=== PATIENT | female | born 1945 | race Caucasian/White ===

== ENCOUNTER 2016-07-21 10:13 | Outpatient (CLI) | payer MEDICARE ==
--- NOTE | 2016-07-24 09:47 | Mammography Report ---
DIGITAL BILATERAL SCREENING MAMMOGRAM: 07/21/2016 CLINICAL HISTORY: A 71-year-old female in for routine screening mammogram. Patient has no family hi story of breast cancer. Patient had bilateral reduction mammoplasties in 2000. COMPARISON: 03/12/2012, 12/06/2010, 08/12/2012. TECHNIQUE: Craniocaudad and oblique lateral views of each breast were obtained with Hologic full-fie ld digital mammography. Also, exaggerated craniocaudad views of the breasts were obtained. FINDINGS: Breasts are almost entirely composed of fat. Benign calcifications are seen in the outer half of the left breast. This most likely is the result of benign fat necrosis. These have been pre sent on multiple old exams dated as far back as 03/12/2012. There is a small cluster of calcificatio ns developing in a circular pattern in the 12 o'clock position of the left breast 3 cm immediately nagel perior to the subareolar region. This cluster of calcification most likely represents benign fat nec rosis. It should be followed with annual mammography. An area of scarring is once again noted in the 9 o'clock position of the posterior aspect of the righ t breast. IMPRESSION: BREASTS APPEAR RADIOGRAPHICALLY BENIGN. THERE IS A SMALL CLUSTER OF CALCIFICATIONS DEVE LOPING IN THE 12 O'CLOCK POSITION OF THE LEFT BREAST IMMEDIATELY SUPERIOR TO THE LEFT SUBAREOLAR SHONDA ON. THIS FINDING MOST LIKELY IS A RESULT OF BENIGN FAT NECROSIS. RECOMMEND IT BE FOLLOWED WITH [facility]. BI-RADS 2. Benign findings. RECOMMENDATIONS: Annual bilateral screening mammography. STANDARD QUALIFYING STATEMENTS 1. This examination was reviewed with the aid of Computer-Aided Detection (CAD). 2. A negative or benign imaging report should not delay biopsy if clinically suspicious findings are present. Consider surgical consultation if warranted. More than 5% of cancers are not identified by umesh mondragon. 3. Dense breasts may obscure an underlying neoplasm. JOB #: [id number] EXT JOB #:[id number]
== END 2016-07-21 10:14 | disposition home or self-care (01) ==
LOC: DI.S 10:13
PROVIDERS: ATTEND Internal Medicine
DX: Z12.31 Encounter for screening mammogram for malignant neoplasm of breast (principal)
CPT/HCPCS: 77067

== ENCOUNTER 2017-03-27 09:34 | Outpatient (CLI) | payer MEDICARE ==
[2017-03-27 18:19] LABS: T4 (THYROXINE) 8.64 ug/dL (6.09-12.23)
[2017-03-27 18:23] LABS: THYROID STIMULATING HORMONE 2.57 uIU/mL (0.34-5.60)
== END 2017-03-27 09:35 | disposition home or self-care (01) ==
LOC: LAB.F 09:34
PROVIDERS: ATTEND Internal Medicine
DX: E03.9 Hypothyroidism, unspecified (principal)
CPT/HCPCS: 36415; 84436; 84443; 84481

== ENCOUNTER 2017-10-22 10:58 | Day surgery (SDC) | payer MEDICARE ==
[2017-10-22] MEDS ORDERED: LACTATED RINGERS 1,000 ML IV ONE (11:36)
[2017-10-22] MEDS ORDERED: MIDAZOLAM 2 MG/2 ML VIAL IVP ONE (13:05)
[2017-10-22] MEDS ORDERED: fentaNYL 100 MCG/2 ML VIAL IVP ONE (13:05)
[2017-10-22 14:03] VITALS: BP 130/73
== END 2017-10-22 10:59 | disposition home or self-care (01) ==
LOC: SDS 10:58
PROVIDERS: ATTEND Surgery
PROC: 0DJD8ZZ Inspection of Lower Intestinal Tract, Via Natural or Artificial Opening Endoscopic (ICD-10-PCS; principal; 2017-10-22 12:00)
DX: Z12.11 Encounter for screening for malignant neoplasm of colon (principal); K64.8 Other hemorrhoids; E03.9 Hypothyroidism, unspecified; Z87.891 Personal history of nicotine dependence
CPT/HCPCS: G0121; J7120

== ENCOUNTER 2018-03-20 12:29 | Outpatient (CLI) | payer MEDICARE ==
--- NOTE | 2018-03-20 13:55 | DEXA Report ---
Reason: UNSPECIFIED OSTEOARTHRITIS, UNSPECIFIED SITE Procedure Date: 03/20/2018 Accession Number: [id number] / [id number] Procedure: DEX - Dexa Spine and/or Hip CPT Code: FULL RESULT: EXAM: Dexa Spine and/or Hip DATE: 03/20/2018 1:31 PM CLINICAL HISTORY: Ovarian failure. Hormone replacement therapy. Arthritis. TECHNIQUE: Dual energy x-ray absorptiometry (DXA) was performed on a AlphaSights System. Regions measured are the AP Spine, femoral neck, and if needed forearm. COMPARISON: None. In accordance with the International Society for Clinical Densitometry (ISCD) guidelines, data from previous exams may be reanalyzed using current recommendations and techniques. This is done to allow a more accurate basis for comparison with the current study. FINDINGS: The data for the lumbar spine is as follows: BMD (g/cm/cm) T-SCORE Z-SCORE REGION L1 1.022 -0.9 1.2 L2 1.092 -0.9 1.2 L3 1.235 0.3 2.4 L4 1.254 0.4 2.5 TOTAL 1.151 -0.2 1.8 NOTE: All evaluable vertebrae are used for classification The data for the hip is as follows: BMD (g/cm/cm) T-SCORE Z-SCORE REGION Neck 0.746 -2.1 0.0 TOTAL 0.746 -2.1 -0.1 NOTE: The femoral neck or total proximal femur, whichever is lowest, is used for classification. IMPRESSION: THE WHO CLASSIFICATION BASED ON THE INTERNATIONAL REFERENCE STANDARD IS OSTEOPENIA. THE FRACTURE RISK IS INCREASED. RECOMMENDATION: Patients with diagnosis of osteoporosis or osteopenia should have regular bone mineral density assessment. For those eligible for Medicare, routine testing is allowed once every 2 years. Testing frequency can be increased for patients who have rapidly progressing disease or for those who are receiving medical therapy to restore bone mass. COMMENT: World Health Organization (WHO) definitions for osteoporosis and osteopenia: NORMAL BMD: T-score at -1.0 or higher, fracture risk is low OSTEOPENIA BMD: T-score between -1.0 and -2.5, fracture risk is increased. OSTEOPOROSIS BMD: T-score at -2.5 or lower, fracture risk is high. National Osteoporosis Foundation recommends: 1. Obtain adequate dietary calcium (at least 1200 mg per day) and vitamin D (400-800 international units per day). 2. Participate, as appropriate, in regular weightbearing and muscle-strengthening exercise. 3. Avoid tobacco use and reduce alcohol and caffeine intake. 4. For more detailed information see the website at www.NOF.org.
== END 2018-03-20 12:30 | disposition home or self-care (01) ==
LOC: DI 12:29
PROVIDERS: ATTEND Internal Medicine
DX: M85.89 Other specified disorders of bone density and structure, multiple sites (principal); M19.90 Unspecified osteoarthritis, unspecified site
CPT/HCPCS: 77080

== ENCOUNTER 2019-08-05 21:00 | Emergency (ER) | payer MEDICARE ==
[2019-08-05 21:31] LABS: BASOPHILS % (AUTO) 0.3 %; EOSINOPHILS # (AUTO) 0.1 10^3/uL (0.0-0.7); EOSINOPHILS % (AUTO) 1.4 %; HGB - HEMOGLOBIN 14.5 g/dL (12.0-16.0); LYMPHOCYTES # (AUTO) 1.9 10^3/uL (1.5-3.5); LYMPHOCYTES % (AUTO) 19.4 %; MEAN CORPUSCULAR HGB CONC 33.8 g/dL (32.0-36.0); MEAN CORPUSCULAR VOLUME 88.6 fL (81.0-99.0); MEAN PLATELET VOLUME 9.5 fL (7.9-10.8); MONOCYTES # (AUTO) 0.5 10^3/uL (0.0-1.0); MONOCYTES % (AUTO) 5.4 %; NEUTROPHILS # (AUTO) 7.3 10^3/uL (1.5-6.6); NEUTROPHILS % (AUTO) 73.1 %; PLT - PLATELET COUNT 327 10^3/uL (130-450); RED BLOOD COUNT 4.84 10^6/uL (4.20-5.40); RED CELL DISTRIBUTION WIDTH 13.2 % (12.0-15.0); WHITE BLOOD COUNT 9.9 x10^3/uL (4.8-10.8)
--- NOTE | 2019-08-05 21:39 | ED Physician Documentation ---
PD HPI CHEST PAIN - Stated complaint Stated Complaint: CP - Chief complaint Chief Complaint: Cardiac - History obtained from History obtained from: Patient - History of Present Illness Timing - onset: How many hours ago (5-6) Timing - onset during: Rest, Light activity Timing - duration: Hours (5-6) Timing - details: Abrupt onset, Still present, Waxing and waning Quality: Pressure, Tightness, Aching. No: Tearing Location: Substernal Radiation: No: Neck, Back, Abdominal Improved by: No: Rest, Antacids Worsened by: No: Exertion, Inspiration, Movement, Palpation Associated symptoms: Nausea. No: Shortness of air, Feeling faint / dizzy, General Weakness Similar symptoms before: Has not had sx before (Has had substernal tightness from diagnosed esophageal spasms in the past but those typically only last 5 to 15 minutes and then improve. Have been improved with oral medications in the past. Today's pain was different and being more prolonged and different character of more pressure feeling) Recently seen: Not recently seen Review of Systems Constitutional: denies: Fever, Chills Nose: denies: Rhinorrhea / runny nose, Congestion Throat: denies: Sore throat Respiratory: denies: Cough GI: reports: Nausea. denies: Vomiting, Diarrhea Skin: denies: Rash Neurologic: denies: Generalized weakness, Near syncope Psychiatric: denies: Anxiety Endocrine: denies: Weight loss Immunocompromised: denies: Immunocompromised PD PAST MEDICAL HISTORY - Past Medical History Cardiovascular: None Respiratory: Pneumonia Endocrine/Autoimmune: HyPOthyroidism GI: GI bleed : Other HEENT: Chronic vision loss Psych: None Musculoskeletal: Osteoarthritis Derm: None - Past Surgical History General: Appendectomy, Colonoscopy Ortho: Rotator cuff repair /RECEPTION SPECIALIST: Tubal ligation, Hysterectomy, Breast reduction, Other HEENT: Cataracts, Tonsil/Adenoidectomy - Present Medications Home Medications: Ambulatory Orders Medication Instructions Recorded Confirmed Aspirin 1 DAILY 10/22/17 Levothyroxine [Synthroid] 1 BID 10/22/17 - Allergies Allergies/Adverse Reactions: Allergies Allergy/AdvReac Type Severity Reaction Status Date / Time erythromycin base Allergy Unknown Verified 08/05/19 21:06 - Social History Does the pt smoke?: No Smoking Status: Never smoker PD ED PE NORMAL - Vitals Vital signs reviewed: Yes - General General: Alert and oriented X 3, No acute distress, Well developed/nourished - HEENT HEENT: Moist mucous membranes, Pharynx benign - Neck Neck: Supple, no meningeal sign, No adenopathy - Cardiac Cardiac: RRR, No murmur - Respiratory Respiratory: Clear bilaterally, Other (no chestwall tenderness) - Abdomen Abdomen: Soft, Non tender - Back Back: No CVA TTP - Derm Derm: Normal color, Warm and dry - Extremities Extremities: Normal ROM s pain, No edema, No calf tenderness / cord - Neuro Neuro: Alert and oriented X 3, No motor deficit, Normal speech Results - Vitals Vitals: Vital Signs - 24 hr 08/05/19 08/05/19 08/05/19 21:06 21:16 22:19 Temperature 36.6 C Heart Rate 104 H 98 105 H Respiratory 16 16 12 Rate Blood Pressure 190/93 H 184/98 H 171/81 H O2 Saturation 98 100 98 08/05/19 22:22 Temperature Heart Rate 93 Respiratory 15 Rate Blood Pressure 159/91 H O2 Saturation 93 Oxygen O2 Source Room air - EKG (time done) 21:07 Rhythm: NSR [place]: Normal Intervals: Normal ME QRS: Normal Ischemia: ST elevation c/w ischemia (V2 and aVF, III. consider anteroseptal infarct but not true pattern with V1 and V3 being normal. ). No: Normal ST segments - Labs Labs: Laboratory Tests 08/05/19 08/05/19 08/05/19 21:23 21:23 21:23 WBC 9.9 RBC 4.84 Hgb 14.5 Hct 42.9 MCV 88.6 MCH 30.0 MCHC 33.8 RDW 13.2 Plt Count 327 MPV 9.5 Neut # (Auto) 7.3 H Lymph # (Auto) 1.9 [place] # (Auto) 0.5 Eos # (Auto) 0.1 Baso # (Auto) 0.0 Absolute Nucleated RBC 0.00 Nucleated RBC % 0.0 Sodium 137 Potassium 3.4 L Chloride 99 L Carbon Dioxide 27 Anion Gap 11.0 BUN 21 H Creatinine 0.6 Estimated GFR (MDRD) 97 Glucose 123 H Calcium 9.3 Total Bilirubin 0.6 AST 53 H ALT 37 Alkaline Phosphatase 89 Troponin I High Sens 2723.4 H* Total Protein 7.2 Albumin 4.6 Globulin 2.6 Albumin/Globulin Ratio 1.8 Lipase 42 - Rads (name of study) chest xray Radiology: Prelim report reviewed (normal), See rad report PD MEDICAL DECISION MAKING - ED course Complexity details: reviewed results (There is initial EKG shows ST elevation at V2 and some ST depressions in the lateral leads. However was not a full pattern of the ST elevations. I talked with the patient and we shared decision to await the initial troponin which was not long for the result.), re-evaluated patient, considered differential (Consider prolonged esophageal spasm but more concerning for acute OH. She does not have any risk factors nor findings to raise concern for PE. The character of the pain does not consistent with aortic dissection. Her chest x-ray is clear without any signs of pneumonia nor pneumothorax nor effusio), d/w patient, other (The patient did subsequently get activated as a STEMI but was delayed in time because of the nonpatterned distribution of the ST elevation in V2 only and subsequent decision making process with the [facility] emergency physician and belt measurer.) ED course: The patient had a repeat EKG showing the same morphology without any change. The troponin came back extremely elevated at over 2000. Consistent with acute OH. I talked with the ER physician at [facility] who is also undecided on a true STEMI alert but accepted transfer the patient as a STEMI for now and would notify the belt measurer. I did talk with the belt measurer as well and and he had reviewed the EKG. He says they will see the patient in the ER and repeat EKG at that time and decide on whether going to the [facility] or not Departure - Departure Disposition: 02 Transfer Acute Care Hosp Clinical Impression: Chest pain Qualifiers: Chest pain type: precordial pain Qualified Code(s): R07.2 - Precordial pain Myocardial infarction Qualifiers: Myocardial infarction type: ST elevation myocardial infarction Involved coronary artery: unspecified coronary artery Qualified Code(s): I21.3 - ST elevation (STEMI) myocardial infarction of unspecified site Condition: Stable Record reviewed to determine appropriate education?: Yes Discharge Date/Time: 08/05/19 22:25
[2019-08-05 21:51] LABS: ALBUMIN 4.6 g/dL (3.2-5.5); ALBUMIN/GLOBULIN RATIO 1.8 (1.0-2.2); BILIRUBIN,TOTAL 0.6 mg/dL (0.2-1.0); CALCIUM 9.3 mg/dL (8.5-10.3); CREATININE 0.6 mg/dL (0.4-1.0); TOTAL PROTEIN 7.2 g/dL (6.7-8.2)
[2019-08-05] MEDS ORDERED: LIDOCAINE VISCOUS 2% 15 ML UDC MM STA (21:53)
[2019-08-05] MEDS ORDERED: NITROGLYCERIN SL 0.4 MG TABLET SL STA (21:53)
[2019-08-05] MEDS ORDERED: MAG HYDROX/AL HYDROX/SIMETH 30 ML UDC PO STA (21:53)
[2019-08-05] MEDS ORDERED: diazePAM INJ 5 MG/ML SYRINGE IVP STA (21:53)
--- NOTE | 2019-08-05 21:56 | XRAY Report ---
PROCEDURE: Chest 1 View X-Ray INDICATIONS: Chest pain TECHNIQUE: One view of the chest was acquired. COMPARISON: None. FINDINGS: Surgical changes and devices: None. Lungs and pleura: No pleural effusions or pneumothorax. Question of small opacity in the right lower lung field. Lung volumes are prominent. Mediastinum: Mediastinal contours appear normal. Heart size is normal. Bones and chest wall: No suspicious bony lesions. Overlying soft tissues appear unremarkable. IMPRESSION: Questionable small opacity in the right lower lung field versus is calcification at the costochondral junction. Reviewed by: William Herrera MD on 08/05/2019 9:54 PM PDT Approved by: William Herrera MD on 08/05/2019 9:54 PM PDT Station ID: [id number]
[2019-08-05] MEDS ORDERED: HEPARIN 25000UNITS/500ML (D5W) 25,000 UNIT/500 ML BAG IV STA (22:06)
[2019-08-05] MEDS ORDERED: CLOPIDOGREL 300 MG TABLET PO STA (22:06)
[2019-08-05] MEDS ORDERED: ASPIRIN CHEW 81 MG TABLET PO STA (22:06)
[2019-08-05] MEDS ORDERED: HEPARIN 5,000 UNIT/ML VIAL IVP STA (22:06)
[2019-08-05] MEDS ORDERED: SODIUM CHLORIDE 0.9% 1,000 ML IV STA (22:07)
[2019-08-05] MEDS ORDERED: METOPROLOL 5 MG/5 ML VIAL IVP STA (22:07)
[2019-08-05 22:40] VITALS: BP 159/91
[2019-08-05] MEDS ORDERED: NITROGLYCERIN 50 MG/250 ML 50 MG/250 ML BOTTLE IV SCH (23:00)
== END 2019-08-05 22:25 | disposition short-term general hospital (02) ==
LOC: ED 21:00
DX: I21.3 ST elevation (STEMI) myocardial infarction of unspecified site (principal); Z79.82 Long term (current) use of aspirin
CPT/HCPCS: 36415; 71045; 80053; 83690; 84484; 85025; 93005; 96374; 96375; 99284; 99285; A9270

== ENCOUNTER 2019-08-05 22:32 | Outpatient (CLI) | payer MEDICARE | END 2019-08-05 22:33 | disposition short-term general hospital (02) | LOC: EMS 22:32 | PROVIDERS: ATTEND Surgery | DX: I21.9 Acute myocardial infarction, unspecified (principal) | CPT/HCPCS: A0425; A0426 ==

== ENCOUNTER 2019-12-14 03:41 | Observation (INO) | payer MEDICARE ==
[2019-12-14 04:02] LABS: BASOPHILS # (AUTO) 0.1 10^3/uL (0.0-0.1); BASOPHILS % (AUTO) 0.7 %; EOSINOPHILS # (AUTO) 0.4 10^3/uL (0.0-0.7); EOSINOPHILS % (AUTO) 4.9 %; HGB - HEMOGLOBIN 13.8 g/dL (12.0-16.0); LYMPHOCYTES # (AUTO) 2.5 10^3/uL (1.5-3.5); LYMPHOCYTES % (AUTO) 32.8 %; MEAN CORPUSCULAR HEMOGLOBIN 31.1 pg (27.0-31.0); MEAN CORPUSCULAR VOLUME 91.4 fL (81.0-99.0); MEAN PLATELET VOLUME 9.5 fL (7.9-10.8); MONOCYTES # (AUTO) 0.8 10^3/uL (0.0-1.0); NEUTROPHILS # (AUTO) 3.8 10^3/uL (1.5-6.6); NEUTROPHILS % (AUTO) 51.3 %; PLT - PLATELET COUNT 310 10^3/uL (130-450); RED BLOOD COUNT 4.44 10^6/uL (4.20-5.40); RED CELL DISTRIBUTION WIDTH 13.2 % (12.0-15.0); WHITE BLOOD COUNT 7.5 x10^3/uL (4.8-10.8)
[2019-12-14] MEDS ORDERED: ASPIRIN 325 MG TABLET PO STA (04:04)
--- NOTE | 2019-12-14 04:04 | ED Physician Documentation ---
PD HPI CHEST PAIN - Stated complaint Stated Complaint: CP - Chief complaint Chief Complaint: Cardiac - History obtained from History obtained from: Patient - Additional information Additional information: 74-year-old woman with past medical history of high blood pressure, cholesterol, [place] in July 2019 status post stent at [facility] cardiology presents with midsternal chest pain starting at 2:30 AM at rest, lasting 45 minutes constant aching nonradiating, now resolved. Not worse with deep breathing. Patient denies shortness of breath nausea vomiting diaphoresis back pain. She had been feeling normal earlier in the day. Denies fevers Review of Systems Ten Systems: 10 systems reviewed and negative Constitutional: denies: Fever, Chills Cardiac: reports: Chest pain / pressure Respiratory: denies: Dyspnea, Cough GI: denies: Abdominal Pain, Nausea, Vomiting PD PAST MEDICAL HISTORY - Past Medical History Cardiovascular: None Respiratory: Pneumonia Endocrine/Autoimmune: HyPOthyroidism GI: GI bleed : Other HEENT: Chronic vision loss Psych: None Musculoskeletal: Osteoarthritis Derm: None - Past Surgical History General: Appendectomy, Colonoscopy Ortho: Rotator cuff repair /LABORATORY SCIENTIST: Tubal ligation, Hysterectomy, Breast reduction, Other HEENT: Cataracts, Tonsil/Adenoidectomy - Present Medications Home Medications: Ambulatory Orders Medication Instructions Recorded Confirmed Aspirin 1 DAILY 10/22/17 Levothyroxine [Synthroid] 1 BID 10/22/17 - Allergies Allergies/Adverse Reactions: Allergies Allergy/AdvReac Type Severity Reaction Status Date / Time erythromycin base Allergy Unknown Verified 12/14/19 04:01 - Social History Does the pt smoke?: No Smoking Status: Never smoker PD ED PE NORMAL - Vitals Vital signs reviewed: Yes - General General: Alert and oriented X 3 - HEENT HEENT: Atraumatic, PERRL, EOMI - Neck Neck: Supple, no meningeal sign, No JVD - Cardiac Cardiac: RRR - Respiratory Respiratory: No respiratory distress, Clear bilaterally - Abdomen Abdomen: Normal bowel sounds, Non tender, Non distended - Female Female : Deferred - Rectal Rectal: Deferred - Back Back: No CVA TTP - Derm Derm: Normal color, No rash - Extremities Extremities: No deformity - Neuro Neuro: Alert and oriented X 3 - Psych Psych: Normal mood, Normal affect Results - Vitals Vitals: Vital Signs - 24 hr 12/14/19 12/14/19 12/14/19 03:47 04:45 04:53 Temperature 36.8 C Heart Rate 71 73 64 Respiratory 22 15 12 Rate Blood Pressure 171/79 H 123/40 L 134/79 H Blood Pressure 123/40 L [Left] Blood Pressure 171/79 H [Right] O2 Saturation 99 97 99 Oxygen O2 Source Room air - EKG (time done) 0349 Rhythm: NSR Compare to prior EKG: Unchanged from prior EKG Computer interpretation: Agree with computer - Labs Labs: Laboratory Tests 12/14/19 12/14/19 12/14/19 03:52 03:52 03:52 WBC 7.5 RBC 4.44 Hgb 13.8 Hct 40.6 MCV 91.4 MCH 31.1 H MCHC 34.0 RDW 13.2 Plt Count 310 MPV 9.5 Neut # (Auto) 3.8 Lymph # (Auto) 2.5 [place] # (Auto) 0.8 Eos # (Auto) 0.4 Baso # (Auto) 0.1 Absolute Nucleated RBC 0.00 Nucleated RBC % 0.0 D-Dimer Sodium 140 Potassium 3.9 Chloride 103 Carbon Dioxide 27 Anion Gap 10.0 BUN 18 Creatinine 0.6 Estimated GFR (MDRD) 97 Glucose 111 H Calcium 9.5 Total Bilirubin 0.8 AST 33 ALT 41 Alkaline Phosphatase 108 Troponin I High Sens 11.8 Total Protein 6.9 Albumin 4.3 Globulin 2.6 Albumin/Globulin Ratio 1.7 Lipase 48 12/14/19 03:52 WBC RBC Hgb Hct MCV MCH MCHC RDW Plt Count MPV Neut # (Auto) Lymph # (Auto) [place] # (Auto) Eos # (Auto) Baso # (Auto) Absolute Nucleated RBC Nucleated RBC % D-Dimer 217.4 Sodium Potassium Chloride Carbon Dioxide Anion Gap BUN Creatinine Estimated GFR (MDRD) Glucose Calcium Total Bilirubin AST ALT Alkaline Phosphatase Troponin I High Sens Total Protein Albumin Globulin Albumin/Globulin Ratio Lipase PD MEDICAL DECISION MAKING - ED course Complexity details: reviewed results, re-evaluated patient, d/w patient, d/w family ED course: 74-year-old woman with recent [place] in July presents with new onset chest pain at rest upon waking this morning. Pain self resolved and patient presented to the ED for evaluation. Work-up in the emergency department negative, however she will benefit from further Cardiologic evaluation. Discussed with hospitalist who will admit her. Patient and agreeable. Departure - Departure Disposition: 66 [facility] DC/Xfer Clinical Impression: Chest pain Condition: Stable
[2019-12-14 04:18] LABS: ALBUMIN 4.3 g/dL (3.2-5.5); ALBUMIN/GLOBULIN RATIO 1.7 (1.0-2.2); BILIRUBIN,TOTAL 0.8 mg/dL (0.2-1.0); CALCIUM 9.5 mg/dL (8.5-10.3); CREATININE 0.6 mg/dL (0.4-1.0); TOTAL PROTEIN 6.9 g/dL (6.7-8.2)
[2019-12-14] MEDS ORDERED: SODIUM CHLORIDE FLUSH 0.9% 10 ML SYRINGE IVP PRN (06:37)
--- NOTE | 2019-12-14 06:42 | HISTORY & PHYSICAL EXAMINATION ---
Chief Complaint - Chief Complaint Chief Complaint: Left-sided chest pain History of Present Illness - Admitted From Admitted From:: [facility] ED - History Obtained From Records Reviewed: Yes History obtained from: Patient - History of Present Illness HPI Comment/Other: Patient is a 74-year-old female with medical history significant for coronary artery disease. She had an MRI in August 2019 and had 2 stents placed. She presented to the ED with complaint of sudden onset of left-sided chest pain with no radiation. She described the pain as being sharp in nature and rated at a 5 out of 10 scale. By the time she left home to head out to the emergency room her pain had resolved. While the pain was going on she took her blood pressure and it was 189/95. She repeated it short while later and it was 205/105. She explains that when she had the MRI it felt like an elephant on her chest and that this pain is significantly different from that time. She denied dyspnea, nausea, vomiting, sensation of heartburn. She also denied fever chills or abdominal pain. She does not have any lower extremity edema. Her replenishment analyst is Dr. Tl Steven from [place]. In the ED work-up included an EKG and troponin which were unremarkable. As a re sult of her significant cardiac history and recent cardiac intervention she was presented for admission for further evaluation. History - Past Medical History Cardiovascular: reports: None, Hypertension, High cholesterol, Coronary artery disease Endocrine/Autoimmune: reports: HyPOthyroidism GI: reports: GI bleed : reports: Other HEENT: reports: Chronic vision loss Psych: reports: None Musculoskeletal: reports: Osteoarthritis Derm: reports: None MRSA Hx?: No - Past Surgical History General: reports: Appendectomy, Colonoscopy Ortho: reports: Rotator cuff repair /CORPORATE INTERN: reports: Tubal ligation, Hysterectomy, Breast reduction, Other Cardiovascular: reports: Coronary stent HEENT: reports: Cataracts, Tonsil/Adenoidectomy - Family & Social History Family History Comment/Other: The patient's mother had an unspecified heart disease. She in 1959 from an MVA. The patient's children and sibling healthy. Living arrangement: At home Living Situation: With spouse/s.o. Social History Notes: She smoked 1 pack of cigarettes a day from the age of 13- 19. She rarely consumes alcohol and does not use any recreational substances. - POLST Patient has POLST: No Meds/Allgy - Home Medications Home Medications: Ambulatory Orders Medication Instructions Recorded Confirmed Aspirin 1 DAILY 10/22/17 Levothyroxine [Synthroid] 1 BID 10/22/17 - Allergies Allergies/Adverse Reactions: Allergies Allergy/AdvReac Type Severity Reaction Status Date / Time erythromycin base Allergy Unknown Verified 12/14/19 04:01 telithromycin [From Ketek] Allergy Rash Verified 12/14/19 08:03 morphine AdvReac Intermediate Unknown Verified 12/14/19 08:02 Review of Systems - Constitutional Constitutional: denies: Fever, Chills - Eyes Eyes: denies: Pain - Ears, Nose & Throat Ears, Nose & Throat: denies: Ear pain - Cardiovascular Cariovascular: reports: Chest pain. denies: Irregular heart rate, Palpitations, Edema, Lightheadedness, Syncope, Exertional dyspnea, Decr. exercise tolerance - Respiratory Respiratory: denies: Cough, Sputum production, Wheezing, SOB at rest, SOB with exertion - Gastrointestinal Gastrointestinal: denies: Abdominal pain, Abdominal distention, Nausea, Vomiting, Reflux/heartburn - Genitourinary Genitourinary: denies: Dysuria, Frequency, Urgency, Hematuria - Musculoskeletal Musculoskeletal: denies: Muscle pain, Back pain, Muscle aches - Integumentary Integumentary: denies: Rash, Pruritis, Lesions - Neurological Neurological: denies: General weakness, Focal weakness, Headache, Dizziness - Psychiatric Psychiatric: denies: Depression, Anxiety - Endocrine Endocrine: denies: Polyuria, Polydypsia - Hematologic/Lymphatic Hematologic/Lymphatic: denies: Anemia, Bruising Prior Level of Functionality: She is independent of activities of daily living.She is very active and walks daily Exam - Vital Signs Vital Signs: Vital Signs x48h Temp Pulse Resp BP BP BP Pulse Ox 12/14/19 06:00 36.8 C 70 12 172/90 H 99 12/14/19 04:53 64 12 134/79 H 99 12/14/19 04:45 73 15 123/40 L 97 12/14/19 03:47 36.8 C 71 22 171/79 H 123/40 L 171/79 H 99 Conclusion/Plan - Problem List (1) Chest pain Conclusion/Plan: EKG showed sinus rhythm. Initial troponin was normal at 11.8. Will trend troponin times tomorrow. The patient had an MRI in August 2019 and is currently on the baby aspirin and Plavix. We will continue. We will do stress test on Sunday. (2) Coronary artery disease Conclusion/Plan: Recent PCI with stents placed in August 2019. Patient is on aspirin and Plavix. Will continue. We will continue patient's Toprol XL 50 mg daily. Patient is also on lisinopril 5 mg daily and rosuvastatin. (3) Hypothyroidism Conclusion/Plan: Will resume patient's Synthroid at home dose. (4) Hyperlipidemia Conclusion/Plan: Patient is on Rosuvastatin. We will use an equivalent dose of atorvastatin while in the hospital. (5) Hypertension Conclusion/Plan: Patient is on metoprolol XL 50 mg p.o. daily and lisinopril 5 mg. We will continue. We will also order a as needed like hydralazine if and when indicated. - Lab Results Fish Bones: 12/14/19 03:52 12/14/19 03:52 Core Measures - Anticipated LOS I expect patient to be DC'd or transferred within 96 hours.: Yes - DVT/VTE - Prophylaxis VTE/DVT Device ordered at admit?: Yes
--- NOTE | 2019-12-14 07:54 | XRAY Report ---
PROCEDURE: Chest 1 View X-Ray INDICATIONS: Chest pain TECHNIQUE: One view of the chest was acquired. COMPARISON: 08/05/2019 FINDINGS: Surgical changes and devices: None. Lungs and pleura: No pleural effusions or pneumothorax. Stable appearance of multiple costochondral calcifications most pronounced in the left lower lung zone. Lungs are otherwise clear. Mediastinum: Mediastinal contours appear normal. Heart size is normal. Bones and chest wall: No suspicious bony lesions. Overlying soft tissues appear unremarkable. IMPRESSION: Chest without acute cardiopulmonary abnormalities. No significant discrepancy with initial interpretation by overnight radiologist. Reviewed by: Preston Gleason MD on 12/14/2019 6:53 AM [facility] Approved by: Preston Gleason MD on 12/14/2019 6:53 AM [facility] Station ID: [id number]
[2019-12-14] MEDS: LEVOTHYROXINE 75 MCG TABLET PO SCH (09:29)
[2019-12-14] MEDS: SODIUM CHLORIDE FLUSH 0.9% 10 ML SYRINGE IVP SCH ×2 (09:29→19:28)
--- NOTE | 2019-12-14 12:21 | PHARMACY PROGRESS NOTE ---
- Best Possible Medication History Admit Date and Time: 12/14/19 0637 Processed by: Pharmacy Medication History completed: Yes Patient Interview: Pt unable to participate Patient had pill box. Meds identified. Of note, patient had both metoprolol tartrate 25 mg tablets and metoprolol succinate 25 mg tablets. Most recent prescription was for metoprolol succinate 25mg tablets with instructions to take 2 tablets daily. As the person ultimately responsible for medication therapy, providers are able to order a medication from an existing home medication list in [facility] via the "Reconcile Routine" prior to Confirmation of that medication by technical sales support manager. Such practice is discouraged except when the physician, in their clinical judgment, deems that a medical need exists for a medication without regard to previous use.
[2019-12-14] MEDS ORDERED: ENOXAPARIN 40 MG/0.4 ML SYRINGE SUBQ SCH (21:00)
[2019-12-15] MEDS: SODIUM CHLORIDE FLUSH 0.9% 10 ML SYRINGE IVP SCH ×2 (02:29→10:08)
[2019-12-15 05:21] LABS: BASOPHILS % (AUTO) 0.6 %; EOSINOPHILS # (AUTO) 0.2 10^3/uL (0.0-0.7); EOSINOPHILS % (AUTO) 4.2 %; HGB - HEMOGLOBIN 13.2 g/dL (12.0-16.0); LYMPHOCYTES # (AUTO) 1.9 10^3/uL (1.5-3.5); LYMPHOCYTES % (AUTO) 37.9 %; MEAN CORPUSCULAR HEMOGLOBIN 30.6 pg (27.0-31.0); MEAN PLATELET VOLUME 9.5 fL (7.9-10.8); MONOCYTES # (AUTO) 0.4 10^3/uL (0.0-1.0); MONOCYTES % (AUTO) 7.7 %; NEUTROPHILS # (AUTO) 2.5 10^3/uL (1.5-6.6); NEUTROPHILS % (AUTO) 49.6 %; PLT - PLATELET COUNT 284 10^3/uL (130-450); RED BLOOD COUNT 4.31 10^6/uL (4.20-5.40); RED CELL DISTRIBUTION WIDTH 13.3 % (12.0-15.0)
[2019-12-15 05:31] LABS: CALCIUM 8.6 mg/dL (8.5-10.3); CREATININE 0.6 mg/dL (0.4-1.0)
[2019-12-15] MEDS: LEVOTHYROXINE 75 MCG TABLET PO SCH (06:11)
[2019-12-15] MEDS ORDERED: lisinopriL 5 MG TABLET PO SCH (09:00)
[2019-12-15] MEDS ORDERED: ASPIRIN EC 81 MG TABLET PO SCH (09:00)
[2019-12-15] MEDS ORDERED: METOPROLOL SUCCINATE 25 MG TABLET PO SCH (09:00)
[2019-12-15] MEDS ORDERED: CLOPIDOGREL 75 MG TABLET PO SCH (09:00)
[2019-12-15] MEDS ORDERED: METOPROLOL SUCCINATE 50 MG TABLET PO SCH (10:15)
[2019-12-15] MEDS ORDERED: ACETAMINOPHEN 500 MG TABLET PO PRN (10:36)
[2019-12-15] MEDS ORDERED: LIOTHYRONINE PO SCH (16:00)
--- NOTE | 2019-12-15 17:27 | Nuclear Medicine Report ---
PROCEDURE: Rest and exercise myocardial perfusion SPECT with gated imaging and ejection fraction INDICATIONS: Chest pain RADIOPHARMACEUTICAL: 7 mCi Tc-99m Myoview IV at rest and 21 mCi Tc-99m Myoview IV at peak exercise. [id number] was performed. TECHNIQUE: Radiopharmaceutical was injected at peak stress test, and also at rest. SPECT images wer e obtained. SPECT myocardial perfusion images were displayed in short axis, horizontal long axis, an d vertical long axis views. Gated images were reviewed using AutoQUANT software. COMPARISON: None available. FINDINGS: Raw data: There is good myocardial labeling by radiotracer. No significant motion artifacts. Lung- to-heart ratio is 0.32 (normal is less than 0.38 for tetrafosmin tracer). Left ventricle function: Gated images demonstrate normal left ventricle wall thickening. No segment al wall motion abnormality. No transient ischemic dilation; TID is 1.47 (normal less than 1.3). The left ventricle resting end-diastolic volume is normal. Left ventricle stress ejection fraction is > 70%; normal values are above 45%. Myocardial perfusion: There is a large, severe, fixed perfusion defect in the anterior wall, consist ent with myocardial infarction. There is minimal reversibility in the anterior wall. IMPRESSION: 1. Abnormal myocardial perfusion images. There is a large, severe, fixed perfusion defect in the ante rior wall consistent with myocardial infarction. There is minimal reversibility in the infarcted terr itory in the anterior wall consistent with minimal jania-infarct ischemia. 2. Normal left ventricular volume and systolic function with LVEF greater than 70%. 3. There is transient ischemic dilation of the left ventricle, which is associated with multivessel c oronary artery disease. The result discussed with Dr. Wing. PQRS ATTESTATIONS: Measure 322 - Is this imaging test primarily performed on a low-risk surgery patient for preoperative evaluation within 30 days preceding their low-risk non-cardiac surgery? Low-risk surgery is defined as cardiac or myocardial infarction less than 1%, including (but not limited to) endoscopic pr ocedures, superficial procedures, cataract surgery, and excisional breast surgery: Answer: No Measure 323 - Is this imaging test performed primarily for the monitoring of an asymptomatic patient who had percutaneous coronary intervention on the visit date or within 2 years of the visit date? An swer: No Measure 324 - Is this imaging test performed primarily for the initial detection and risk assessment on an asymptomatic, low coronary heart disease patient? Low CHD risk definition = clinicians should consider the maximum number of available patient factors used to estimate risk based on [place] (A TP III criteria), typically age, gender, diabetes, smoking status, and use of blood pressure medicati on, and integrate age appropriate estimates for missing elements, such as LDL or standard blood press ure. Answer: No Reviewed by: Glenis Lima MD on 12/15/2019 5:26 PM PST Approved by: Glenis Lima MD on 12/15/2019 5:26 PM PST Station ID: [id number]
--- NOTE | 2019-12-15 17:44 | DISCHARGE SUMMARY ---
"Discharge Summary Admit Date: 12/14/19 Discharge Date: 12/15/19 Discharging Provider: Dr Raven Sutton Primary Care Provider: Dr Ary Abbasi, Dr Tl Steven ([facility], [place], [place]) Condition at Discharge: Fair Discharge Disposition: 01 Home, Self Care - HPI History of Present Illness: From the admission H&P of Dr. Melecio Hunteru: Patient is a 74-year-old white female with medical history significant for coronary artery disease. She had an NH in August 2019 and had 2 stents placed. She presented to the ED now with complaint of sudden onset of left-sided chest pain with no radiation. She described the pain as being sharp in nature and rated at a 5 out of 10 scale. By the time she left home to head out to the emergency room her pain had resolved. While the pain had been going on, she measured her blood pressure and it was 189/95. She repeated it a short while la ter and it was 205/105. She reported that when she had the NH, it had felt like an elephant was on her chest and that this pain is significantly different from that other time. She denied dyspnea, nausea, vomiting, sensation of heartburn. She also denied fever chills or abdominal pain. She does not have any lower extremity edema. Her Uncrater is Dr. Tl Steven from [facility]. In the ED work-up included an EKG and troponin which were unremarkable. As a result of her significant cardiac history and recent cardiac intervention she was presented for further evaluation. - CONSULTS | PROCEDURES Procedures: Treadmill stress test with Nuclear myocardial perfusion imaging - HOSPITAL COURSE Hospital Course: 1) Chest pain She was placed in Observation ststus on telemetry. Troponins were cycled and were negative for acute NH. She had no further episodes of chest pain while here. She had described this pain as a different symptom than her NH pain, as such the Hospitalist reached her Uncrater and discussed her case. The Uncrater did advise a stress test be done here before discharge. 2) Old NH She underwent a treadmill stress test with nuclear myocardial perfusion imaging. She had no chest pain with exercise and achieved an adequate peak heart rate, and there were no new ischemic EKG changes. The nuclear scan, however, showed a large fixed defect of the anterior wall, consistent with an old NH, and there was minimal jania-infarct ischemia reported. There was also transient ischemic dilation of the LV reported, which suggests three vessel CAD. 3) CAD The patient was discharged home with a new prescription for sl NTG, and taught how to use it. All her other medications were to remain the same. She was advised to see her Uncrater soon for hospital follow-up and to have her Uncrater review these nuclear scan findings, in light of her coronary angiogram results from August, (a report which we did not have). The patient remarked that there was still a stenosis at a bifurcation that was not stented, which may therefore be a significant lesion, based on that nuclear scan report. She was advised to do light activity only until seen by her Uncrater; and reyna joiner reported that she already has a previously scheduled appointment to see him next week. 4) Hypertension Her BP was occasionally elevated while here, because she declined to take the hospital-supplied BP meds, insisting she wanted to take her own supply while here, because in Observation status she is billed for hospital-supplied meds and she did not want a large hospital bill. 5) Hypothyroidism She wanted to take her own compounded Cytomel, however, the medication list that was reconciled by Pharmacy at admission, did not say Cytomel, and Cytomel was not reconciled until the next day, when her PCP's office was open (on Sunday) and was contacted by the hospital pharmacy department. 6) Hyperlipidemia She was on Crestor and she did not want to take the hospital's substituted Atorvastatin while here. - ALLERGIES Allergies/Adverse Reactions: Allergies Allergy/AdvReac Type Severity Reaction Status Date / Time erythromycin base Allergy Unknown Verified 12/14/19 04:01 telithromycin [From Ketek] Allergy Rash Verified 12/14/19 08:03 morphine AdvReac Intermediate Unknown Verified 12/14/19 08:02 - MEDICATIONS Home Medications: Ambulatory Orders Medication Instructions Recorded Confirmed RX: Clopidogrel [Plavix] 75 mg PO DAILY 12/14/19 12/14/19 RX: Lisinopril [Prinivil] 5 mg PO DAILY 12/14/19 12/14/19 RX: Metoprolol Succinate [Toprol 50 mg PO DAILY 12/14/19 12/14/19 Xl] Nitroglycerin [Nitrostat] 0.4 mg SL Q5MIN PRN #100 tablet 12/15/19 RX: Aspirin [Aspirin EC] 81 mg PO DAILY 12/15/19 12/15/19 RX: Liothyronine [Cytomel] 15 mcg PO Q8H 12/15/19 12/15/19 RX: Rosuvastatin Calcium [Crestor] 20 mg PO QPM 12/15/19 12/15/19 - PHYSICAL EXAM AT DISCHARGE General Appearance: positive: No acute distress, Alert Eyes Bilateral: positive: Normal inspection, EOMI ENT: positive: ENT inspection nml, No signs of dehydration Neck: positive: Nml inspection, No JVD Respiratory: positive: No respiratory distress, Breath sounds nml Cardiovascular: positive: Regular rate & rhythm Abdomen: positive: Non-tender, No distention Skin: positive: Warm, Dry Extremities: positive: Non-tender, No pedal edema Neurologic/Psychiatric: positive: Oriented x3, Motor nml - LABS Result Diagrams: 12/15/19 04:33 12/15/19 04:33 - DIAGNOSTIC IMAGING Diagnostic Imaging Results: Final report reviewed - FOLLOW UP Follow Up: See Uncrater soon in follow up (has appointment in a week). Light activity advised until Uncrater seen. - TIME SPENT Time Spent in Discharge (Minutes): 30"
--- NOTE | 2019-12-15 17:44 | Discharge Plan ---
Discharge Plan Problem Reviewed?: Yes Disposition: Home, Self Care Condition: Fair Prescriptions: Nitroglycerin [Nitrostat] 0.4 mg SL Q5MIN PRN #100 tablet PRN Reason: Angina Diet: Low Sodium Activity Restrictions: Activity as Tolerated Shower Restrictions: No Driving Restrictions: No Instruction Topics: Angina, Nitroglycerin Fast Acting Health Concerns: You were placed in Observation status to evaluate your blood tests (troponins), which showed that you did not have another heart attack. You then underwent a stress test and this showed evidence of large scar from your recent heart attack and some problems on the border zone of the scar. You are being discharged with a new prescription for sublingual nitroglycerin, to use if you should have chest pain again. Prescription was electronically sent to your [facility] pharmacy in [place]. You should see your Dip Dyer who will review the scans and determine if you need another coronary angiogram and get a stent. Until you are seen by your Dip Dyer, you should NOT be doing daily exercises. Please just carry out gentle activity. Continue all your other prehospital medications. Plan of Treatment: As above. Care Goals: Improvement in symptoms and stabilization are the goals. Assessment: The patient understands. These written instructions are being provided as reminders. Additional Instructions or Follow Up instructions: If you have new or worsening symptoms, call your PCP or Dip Dyer for advice, or come to the ER. No Smoking: If you smoke, Please STOP! Call for help. Follow-up with: Ary Abbasi MD [Primary Care Provider] -
[2019-12-15 18:17] VITALS: BP 120/76
--- NOTE | 2019-12-15 19:28 | CARDIAC PROCEDURE NOTE ---
DATE OF SERVICE: 12/15/2019 Physician: Raven Sutton MD INDICATION: Chest pain. CARDIAC RISK FACTORS: Advanced age, hypertension, hyperlipidemia, family history of early heart disease (her mother had heart disease at age 40). The patient also has a known history of coronary artery disease with an WI about 5 months ago and has coronary stenting. DESCRIPTION OF PROCEDURE: After signing informed consent, the patient underwent a Jc-protocol treadmill stress test with nuclear myocardial perfusion imaging. RESTING HEART RATE: 92. Peak heart rate: 140 (96% predicted maximum heart rate for age). RESTING BLOOD PRESSURE: 155/82. Peak blood pressure: 187/88. The patient exercised for 3 minutes and 42 seconds on a Jc-protocol treadmill stress test. She achieved a peak heart rate of 140 (96% PMHR) and 5.5 METs. The patient had no chest pain and minimal shortness of breath. She described her perceived exertion at 12/20 on the Sarika scale at peak. Oxygen saturation was 94%-98% on room air throughout the test. RESTING EKG: Normal sinus rhythm, left atrial enlargement, right atrial enlargement, QS waves in V1 and V2 consistent with old anteroseptal WI. EKG AT [facility]: No new ST-segment depressions or T-wave abnormalities develop. IMPRESSION 1. Abnormal resting EKG. 2. No ischemic changes develop at 96% predicted heart rate for age. 3. Poorly controlled heart rate and blood pressure (patient did not take any of her usual medications today). 4. Nuclear images showed: Large fixed defect in the anterior wall, consistent with old WI, with minimal jania-infarct ischemia, and there is also transient ischemic dilation of the LV (suggesting three vessel CAD). cc: Ary Abbasi MD TD: 12/15/2019 14:59 MTDD
[2019-12-16] MEDS ORDERED: ASPIRIN EC 81 MG TABLET PO SCH (09:00)
== END 2019-12-15 19:00 | disposition home or self-care (01) ==
LOC: ED 03:41 → MS2 06:37
PROVIDERS: ADMIT Internal Medicine; ATTEND Internal Medicine
DX: R07.89 Other chest pain (principal); I25.2 Old myocardial infarction; I25.10 Atherosclerotic heart disease of native coronary artery without angina pectoris; I10 Essential (primary) hypertension; E03.9 Hypothyroidism, unspecified; E78.5 Hyperlipidemia, unspecified; Z95.5 Presence of coronary angioplasty implant and graft; Z87.891 Personal history of nicotine dependence; Z20.828 Contact with and (suspected) exposure to other viral communicable diseases; Z79.899 Other long term (current) drug therapy
CPT/HCPCS: 36415; 71045; 78452; 80048; 80053; 83690; 84484; 85025; 85379; 93005; 93017; 99284; 99285; A9270; A9500; G0378; U0004

== ENCOUNTER 2021-04-01 08:22 | Outpatient (CLI) | payer MEDICARE ==
[2021-04-07 10:10] LABS: HDL LARGE 6578 nmol/L (>6729); LDL MEDIUM 331 nmol/L (<215); LDL PARTICLE NUMBER 1445 nmol/L (<1138); LDL PATTERN A Pattern (A); LDL PEAK SIZE 222.3 Angstrom (>222.9); LDL SMALL 178 nmol/L (<142)
== END 2021-04-01 08:23 | disposition home or self-care (01) ==
LOC: LAB.S 08:22
PROVIDERS: ATTEND Internal Medicine Cardiovascular Disease
DX: E78.5 Hyperlipidemia, unspecified (principal); I10 Essential (primary) hypertension; I25.10 Atherosclerotic heart disease of native coronary artery without angina pectoris; R07.89 Other chest pain
CPT/HCPCS: 36415; 80061; 81599; 83704

== ENCOUNTER 2021-08-17 08:00 | Outpatient (CLI) | payer MEDICARE ==
--- NOTE | 2021-08-17 17:14 | XRAY Report ---
PROCEDURE: Chest 2 View X-Ray INDICATIONS: ACUTE COUGH TECHNIQUE: 2 view(s) of the chest. COMPARISON: None. FINDINGS: Surgical changes and devices: None. Lungs and pleura: No pleural effusions or pneumothorax. Focal opacity noted in the medial aspect of the left lung base. Mediastinum: Mediastinal contours are normal. Heart size is normal. Bones and chest wall: No suspicious bony abnormalities. Soft tissues appear unremarkable. IMPRESSION: Basilar focal airspace opacity which could represent atelectasis or pneumonia. Reviewed by: Jacinda Pickens MD, PhD on 08/17/2021 5:12 PM PDT Approved by: Jacinda Pickens MD, PhD on 08/17/2021 5:12 PM PDT Station ID: [id number]
== END 2021-08-17 23:59 | disposition home or self-care (01) ==
LOC: DI.S 08:00
PROVIDERS: ATTEND Internal Medicine
DX: R91.8 Other nonspecific abnormal finding of lung field (principal)

== ENCOUNTER 2022-02-23 09:45 | Emergency (ER) | payer MEDICARE ==
--- NOTE | 2022-02-23 09:56 | ED Physician Documentation ---
PD HPI ABD PAIN - Stated complaint Stated Complaint: ABD PX - Chief complaint Chief Complaint: Abd Pain - History obtained from History obtained from: Patient - History of Present Illness Timing - onset: How many days ago (3) Timing - duration: Days (3) Timing - details: Gradual onset, Still present, Waxing and waning Quality: Aching, Dull, Pain Location: Epigastric (to lower substernal) Radiation: Chest. No: Upper back Improved by: Eating Worsened by: No: Eating (but has noted it feeling worse if delays eating or first thing in morning.) Associated symptoms: Nausea (and decreased appetite.). No: Fever, Vomiting, Diarrhea, Constipation, Melena Similar symptoms before: Diagnosis (she states the pain is somewhat similar to cardiac pain she had with TX several years ago, with subsequent 2 stents placed. She states there is other area of partial stenosis that was not amenable to stenting.) Recently seen: Emergency Dept (seen in another ER 3 days ago, in AM after the onset of the pain, and patient says workup focused on eval for TX with ECG/CXR/troponinx2 that were normal. Sent home with "not TX" diagnosis. Had minimal bili elevation 1.1 on labs. else normal per patient.) Review of Systems Constitutional: denies: Fever, Chills Nose: denies: Rhinorrhea / runny nose, Congestion Throat: denies: Sore throat Cardiac: denies: Palpitations, Pedal edema, Calf pain Respiratory: denies: Dyspnea, Cough GI: reports: Nausea. denies: Vomiting, Diarrhea, Bloody / black stool Musculoskeletal: denies: Extremity swelling PD PAST MEDICAL HISTORY - Past Medical History Cardiovascular: None, Hypertension, High cholesterol, Coronary artery disease Respiratory: Pneumonia Endocrine/Autoimmune: HyPOthyroidism GI: GI bleed : Other HEENT: Chronic vision loss Psych: None Musculoskeletal: Osteoarthritis Derm: None - Past Surgical History Past Surgical History: Yes General: Appendectomy, Colonoscopy Ortho: Rotator cuff repair /BRASS PICKLER: Tubal ligation, Hysterectomy, Breast reduction, Other Cardiovascular: Coronary stent HEENT: Cataracts, Tonsil/Adenoidectomy - Present Medications Home Medications: Ambulatory Orders Medication Instructions Recorded Confirmed Clopidogrel [Plavix] 75 mg PO DAILY 12/14/19 12/14/19 Metoprolol Succinate [Toprol Xl] 50 mg PO DAILY 12/14/19 12/14/19 lisinopriL [Prinivil] 5 mg PO DAILY 12/14/19 12/14/19 Aspirin [Aspirin EC] 81 mg PO DAILY 12/15/19 12/15/19 Liothyronine [Cytomel] 15 mcg PO Q8H 12/15/19 12/15/19 Nitroglycerin [Nitrostat] 0.4 mg SL Q5MIN PRN #100 tablet 12/15/19 Rosuvastatin Calcium [Crestor] 20 mg PO QPM 12/15/19 12/15/19 Famotidine [Pepcid] 20 mg PO DAILY #20 tablet 02/23/22 Lidocaine Viscous 2% [Xylocaine 5 ml PO Q4H PRN #100 ml 02/23/22 Viscous 2%] - Allergies Allergies/Adverse Reactions: Allergies Allergy/AdvReac Type Severity Reaction Status Date / Time erythromycin base Allergy Unknown Verified 02/23/22 09:55 telithromycin [From Ketek] Allergy Rash Verified 02/23/22 09:55 morphine AdvReac Intermediate Unknown Verified 02/23/22 09:55 - Social History Does the pt smoke?: No Smoking Status: Former smoker Does the pt drink ETOH?: No Does the pt have substance abuse?: No - Immunizations Immunizations are current?: Yes - POLST Patient has POLST: No PD ED PE NORMAL - Vitals Vital signs reviewed: Yes - General General: Alert and oriented X 3, Well developed/nourished Results - Vitals Vitals: Vital Signs - 24 hr 02/23/22 02/23/22 02/23/22 09:51 11:28 12:15 Temperature 36.4 C L Heart Rate 81 71 74 Respiratory 16 14 14 Rate Blood Pressure 117/20 L 126/73 129/78 O2 Saturation 99 100 100 02/23/22 13:50 Temperature Heart Rate 78 Respiratory 18 Rate Blood Pressure 122/72 O2 Saturation 100 Oxygen O2 Source Room air - EKG (time done) 10:01 Rate: Rate (enter#) (71) Rhythm: NSR Ferguson: Normal Intervals: Normal NM QRS: Normal Ischemia: Normal ST segments. No: ST elevation c/w ischemia, ST depression - Labs Labs: Laboratory Tests 02/23/22 02/23/22 02/23/22 11:19 11:19 11:19 WBC 8.3 RBC 4.68 Hgb 14.4 Hct 42.9 MCV 91.7 MCH 30.8 MCHC 33.6 RDW 12.7 Plt Count 275 MPV 9.9 Neut # (Auto) 6.1 Lymph # (Auto) 1.5 Caldwell # (Auto) 0.6 Eos # (Auto) 0.1 Baso # (Auto) 0.0 Absolute Nucleated RBC 0.00 Nucleated RBC % 0.0 Sodium 136 Potassium 4.6 Chloride 100 L Carbon Dioxide 27 Anion Gap 9.0 BUN 16 Creatinine 0.6 Estimated GFR (MDRD) 97 Glucose 94 Calcium 8.9 Magnesium 2.2 Total Bilirubin 0.7 AST 26 ALT 24 Alkaline Phosphatase 70 Troponin I High Sens 4.4 Total Protein 6.8 Albumin 3.7 Globulin 3.1 Albumin/Globulin Ratio 1.2 Lipase 57 H Urine Color Urine Clarity Urine pH Ur Specific Cookson Urine Protein Urine Glucose (UA) Urine Ketones Urine Occult Blood Urine Nitrite Urine Bilirubin Urine Urobilinogen Ur Leukocyte Esterase Urine RBC Urine WBC Ur Squamous Epith Cells Urine Bacteria Ur Microscopic Review Urine Culture Comments 02/23/22 11:33 WBC RBC Hgb Hct MCV MCH MCHC RDW Plt Count MPV Neut # (Auto) Lymph # (Auto) Caldwell # (Auto) Eos # (Auto) Baso # (Auto) Absolute Nucleated RBC Nucleated RBC % Sodium Potassium Chloride Carbon Dioxide Anion Gap BUN Creatinine Estimated GFR (MDRD) Glucose Calcium Magnesium Total Bilirubin AST ALT Alkaline Phosphatase Troponin I High Sens Total Protein Albumin Globulin Albumin/Globulin Ratio Lipase Urine Color YELLOW Urine Clarity HAZY Urine pH 6.5 Ur Specific Cookson 1.010 Urine Protein NEGATIVE Urine Glucose (UA) NEGATIVE Urine Ketones NEGATIVE Urine Occult Blood NEGATIVE Urine Nitrite NEGATIVE Urine Bilirubin NEGATIVE Urine Urobilinogen 0.2 (NORMAL) Ur Leukocyte Esterase NEGATIVE Urine RBC 0-5 Urine WBC 0-3 Ur Squamous Epith Cells MANY Squamous H Urine Bacteria Few Ur Microscopic Review INDICATED Urine Culture Comments NOT INDICATED - Rads (name of study) RUQ U/S Radiology: Prelim report reviewed (no acute process. Some gallbladder polyps incidental. No signs of GB inflammation. CBD normal. ), See rad report PD Medical Decision Making - ED course Complexity details: reviewed results (Negative ECG and Tropoinin again today. TX excluded and does not sound like exertional angina pattern. Has minimal elevation of lipase. She states she does not take statins still, as is on our list. No prior ulcers/PUD. ), re-evaluated patient (she did have some mild improvement/impact with GI cocktail. Labs are essentially normal with just mild lipase elevation, but not diagnostically elevated. U/S upper abd without acute findings. ), considered differential (pain epigastric to substernal and had TX evaluation negative 3 days ago, still with symptoms worse without eating and with some foods. Focus eval here on upper GI. ), d/w patient Reviewed Lab Results: With the EKG and troponin normal as it had been 3 days ago, this is fairly conclusive for noncardiac/TX pain. The pattern is nonexertional and does not sound like angina. The pattern is more correlated with eating or not eating. Evaluation of the upper organs with blood tests including LFTs and lipase did not show a clear diagnosis. The lipase was minimally elevated but not diagnostically (meaning not twice normal or more). Ultrasound was also performed did not show any acute cholecystitis or other local process. As such the remaining diagnosis is most likely gastric with gastritis versus peptic ulcer disease. She does not have any history of this. Consideration would be for an H. pylori he infection. I believe our hospital does not do the stool tests but only the breath test which needs to be scheduled. Her primary care could order the stool test outpatient as this is still accurate. Blood tests are not invoke or considered accurate at this time so a would not order that. Meanwhile we can treat for apparent gastritis with H2 blockers and antacids. Her preference was initially not a PPI. She is not an alcohol drinker. She has minimal caffeine and not very spicy food diet so not much intake changes needed there. Social Determinants of Health: She does not drink alcohol. Non-smoker. She has minimal caffeine. Departure - Departure Disposition: 01 Home, Self Care Clinical Impression: Acute upper abdominal pain Condition: Stable Record reviewed to determine appropriate education?: Yes Instructions: ED PUD Vs Gastritis, ED Epigastric Pain [facility]O Follow-Up: Ary Abbasi MD [Primary Care Provider] - Prescriptions: Famotidine [Pepcid] 20 mg PO DAILY #20 tablet Lidocaine Viscous 2% [Xylocaine Viscous 2%] 5 ml PO Q4H PRN #100 ml PRN Reason: Pain Comments: Your ultrasound is normal for the right upper quadrant abdominal organs. They did note a couple of polyps in the gallbladder which are relatively common and should not be symptomatic typically. On your blood test showed a minimally elevated lipase but not of the degree that we would think of for pancreatitis per se. Your liver enzymes are normal. At this point I would assume your upper abdominal pain is related to an irritation of the stomach, be at gastritis versus ulcer. Common treatment for this would be acid reducing medicine. We can start with famotidine twice daily for the next week and then once daily after that. You can add antacid such as Maalox or Mylanta 3-4 times daily if needed and add the lidocaine to it as needed for symptom reduction. Also add Tylenol every 4-6 hours if needed for pains. Avoid anti-inflammatories as well as minimize caffeine and spicy foods. You said you do not drink alcohol so that is not an issue for irritation. I would anticipate improvement of this over the next several days to week. Follow-up with your primary care. Also with your primary care, have them consider doing a either breath test or stool antigen test for H. pylori as this can be a cause for gastritis like this. I sent your prescriptions to your preferred pharmacy. Discharge Date/Time: 02/23/22 13:56
[2022-02-23] MEDS ORDERED: LIDOCAINE VISCOUS 2% 15 ML ORAL SYRINGE MM STA (10:53)
[2022-02-23] MEDS ORDERED: MAG HYDROX/AL HYDROX/SIMETH 30 ML UDC PO STA (10:53)
[2022-02-23] MEDS ORDERED: FAMOTIDINE 20 MG/2 ML VIAL IVP STA (10:53)
[2022-02-23] MEDS ORDERED: ONDANSETRON 4 MG/2 ML VIAL IVP STA (10:53)
[2022-02-23 11:31] LABS: BASOPHILS % (AUTO) 0.4 %; EOSINOPHILS # (AUTO) 0.1 10^3/uL (0.0-0.7); EOSINOPHILS % (AUTO) 1.4 %; HCT - HEMATOCRIT 42.9 % (37.0-47.0); HGB - HEMOGLOBIN 14.4 g/dL (12.0-16.0); LYMPHOCYTES # (AUTO) 1.5 10^3/uL (1.5-3.5); LYMPHOCYTES % (AUTO) 18.1 %; MEAN CORPUSCULAR HEMOGLOBIN 30.8 pg (27.0-31.0); MEAN CORPUSCULAR HGB CONC 33.6 g/dL (32.0-36.0); MEAN CORPUSCULAR VOLUME 91.7 fL (81.0-99.0); MEAN PLATELET VOLUME 9.9 fL (7.9-10.8); MONOCYTES # (AUTO) 0.6 10^3/uL (0.0-1.0); MONOCYTES % (AUTO) 7.1 %; NEUTROPHILS # (AUTO) 6.1 10^3/uL (1.5-6.6); NEUTROPHILS % (AUTO) 72.8 %; PLT - PLATELET COUNT 275 10^3/uL (130-450); RED BLOOD COUNT 4.68 10^6/uL (4.20-5.40); RED CELL DISTRIBUTION WIDTH 12.7 % (12.0-15.0); WHITE BLOOD COUNT 8.3 x10^3/uL (4.8-10.8)
[2022-02-23 11:46] LABS: ALBUMIN 3.7 g/dL (3.2-5.5); ALBUMIN/GLOBULIN RATIO 1.2 (1.0-2.2); BILIRUBIN,TOTAL 0.7 mg/dL (0.2-1.0); CALCIUM 8.9 mg/dL (8.5-10.3); CREATININE 0.6 mg/dL (0.4-1.0); MAGNESIUM 2.2 mg/dL (1.7-2.8); POTASSIUM 4.6 mmol/L (3.5-5.0); TOTAL PROTEIN 6.8 g/dL (6.7-8.2)
[2022-02-23 11:51] LABS: BILIRUBIN,URINE NEGATIVE (NEGATIVE); GLUCOSE, URINE (UA) NEGATIVE (NEGATIVE); KETONES,URINE (UA) NEGATIVE (NEGATIVE); LEUKOCYTE ESTERASE, URINE NEGATIVE (NEGATIVE); NITRITE,URINE NEGATIVE (NEGATIVE); OCCULT BLOOD,URINE NEGATIVE (NEGATIVE); PH,URINE 6.5 PH (5.0-7.5); PROTEIN,URINE NEGATIVE (NEGATIVE); UROBILINOGEN,URINE 0.2 (NORMAL) E.U./dL (NORMAL)
[2022-02-23 11:54] LABS: CLARITY,URINE HAZY (CLEAR)
[2022-02-23 11:59] LABS: BACTERIA,URINE Few /HPF (None Seen); RBC,URINE 0-5 /HPF (0-5); SQUAMOUS EPITHELIAL CELL,UR MANY Squamous (<= Few); WBC,URINE 0-3 /HPF (0-5)
--- NOTE | 2022-02-23 12:35 | Ultrasound Report ---
PROCEDURE: Abdomen Limited INDICATIONS: upper abd pain for 2-3 days TECHNIQUE: Real-time focused scanning was performed of the abdomen, with image documentation. COMPARISON: None FINDINGS: Liver is within normal limits without focal mass. Gallbladder wall thickness is normal. Several gallb ladder polyps are present, largest which measures 4 mm. No biliary ductal dilatation. Pancreas is wit hin normal limits as visualized. Right kidney demonstrates mild inferior pole calyectasis and is othe rwise within normal limits. IMPRESSION: No acute process. Reviewed by: Nadeen Taylor MD on 02/23/2022 12:34 PM PST Approved by: Nadeen Taylor MD on 02/23/2022 12:34 PM PST Station ID: [id number]
[2022-02-23 13:51] VITALS: BP 122/72
== END 2022-02-23 13:56 | disposition home or self-care (01) ==
LOC: ED 09:45
DX: R10.9 Unspecified abdominal pain (principal); I25.2 Old myocardial infarction; Z95.5 Presence of coronary angioplasty implant and graft; I10 Essential (primary) hypertension; E78.00 Pure hypercholesterolemia, unspecified; I25.10 Atherosclerotic heart disease of native coronary artery without angina pectoris; Z79.01 Long term (current) use of anticoagulants; Z87.891 Personal history of nicotine dependence
CPT/HCPCS: 36415; 76705; 80053; 81001; 83690; 83735; 84484; 85025; 93005; 96374; 99284; A9270; 81003; 87086

== ENCOUNTER 2022-09-05 08:00 | Outpatient (CLI) | payer MEDICARE ==
--- NOTE | 2022-09-05 18:17 | XRAY Report ---
PROCEDURE: Shoulder 3 View RT INDICATIONS: RIGHT SHOULDER PAIN TECHNIQUE: 4 views of the shoulder were acquired. COMPARISON: None. FINDINGS: Bones: No fractures or dislocations. No suspicious bony lesions. Visualized ribs appear intact. Mo derate to severe glenohumeral joint degenerative change. Subacromial spur. Soft tissues: No suspicious soft tissue calcifications. IMPRESSION: Moderate to severe glenohumeral joint degenerative change, subacromial spur. No acute bony abnormalit y. Comment: Shoulder MRI arthrography may potentially be helpful. Reviewed by: Scott Wagner MD on 09/05/2022 6:15 PM PDT Approved by: Scott Wagner MD on 09/05/2022 6:15 PM PDT Station ID: [id number]
== END 2022-09-05 23:59 | disposition home or self-care (01) ==
LOC: DI.WOS 08:00
PROVIDERS: ATTEND Physician Assistant Surgical
DX: M19.011 Primary osteoarthritis, right shoulder (principal)

== ENCOUNTER 2023-04-23 09:08 | Outpatient (CLI) | payer MEDICARE ==
[2023-04-23 16:07] LABS: CHOL/HDL RATIO 2.3 (<4.4); CHOLESTEROL 133 mg/dL; HDL CHOLESTEROL 58 mg/dL; LDL CHOLESTEROL,CALCULATED 62 mg/dL; LDL/HDL RATIO 1.1 (<4.4); TRIGLYCERIDES 63 mg/dL (48-352); VLDL CHOLESTEROL 13 mg/dL
[2023-04-23 16:15] LABS: THYROID STIMULATING HORMONE 1.58 uIU/mL (0.34-5.60)
[2023-04-25 02:08] LABS: VITAMIN D 25-HYDROXY 49.4 ng/mL (30.0-100.0)
== END 2023-04-23 09:09 | disposition home or self-care (01) ==
LOC: LAB.S 09:08
PROVIDERS: ATTEND Internal Medicine
DX: E03.9 Hypothyroidism, unspecified (principal); I25.2 Old myocardial infarction; R09.89 Other specified symptoms and signs involving the circulatory and respiratory systems
CPT/HCPCS: 36415; 80061; 82306; 82330; 83721; 83970; 84439; 84443; 84481

== ENCOUNTER 2023-04-28 07:00 | Outpatient (CLI) | payer MEDICARE ==
--- NOTE | 2023-04-30 07:45 | XRAY Report ---
PROCEDURE: Forearm LT INDICATIONS: LEFT FOREARM CONTUSION TECHNIQUE: 2 views of the forearm were acquired. COMPARISON: None. FINDINGS: Bones: Cortical irregularity of the distal left radius suggesting a nondisplaced fracture. Hardware a t the proximal radius and ulna appears intact. No other findings to suggest fracture or dislocation. Soft tissues: No suspicious soft tissue calcifications or masses. IMPRESSION: Questionable distal radial fracture. If further characterization is warranted, 3 views of the wrist c ould be used. Reviewed by: Kylee Saldana MD on 04/30/2023 7:44 AM PDT Approved by: Kylee Saldana MD on 04/30/2023 7:44 AM PDT Station ID: [id number]
--- NOTE | 2023-04-30 07:46 | XRAY Report ---
PROCEDURE: Elbow 3+V LT INDICATIONS: LEFT FOREARM CONTUSION TECHNIQUE: 3 views of the elbow were acquired. COMPARISON: None. FINDINGS: Bones: No fractures or dislocations. No suspicious bony lesions. Soft tissues: There is elevation of the anterior fat pad suggesting a effusion. No suspicious soft tissue calcifications or masses. IMPRESSION: No acute fracture or dislocation visualized. There are findings suggesting a joint effusion. It is un clear whether this is acute or may be chronic and associated with the prior surgical changes. If ther e are persistent symptoms, repeat study or cross-sectional imaging may be helpful to evaluate for occ ult fracture. Reviewed by: Kylee Saldana MD on 04/30/2023 7:45 AM PDT Approved by: Kylee Saldana MD on 04/30/2023 7:45 AM PDT Station ID: [id number]
== END 2023-04-28 23:59 | disposition home or self-care (01) ==
LOC: DI.S 07:00
PROVIDERS: ATTEND Emergency Medicine
DX: S50.12XA Contusion of left forearm, initial encounter (principal)

== ENCOUNTER 2023-04-30 16:18 | Outpatient (CLI) | payer MEDICARE ==
--- NOTE | 2023-04-30 17:23 | XRAY Report ---
PROCEDURE: Wrist 3+V LT INDICATIONS: CONTUSION OF LEFT FOREARM TECHNIQUE: 4 views of the wrist were acquired. COMPARISON: Left forearm radiograph on April 28, 2023 FINDINGS: Bones: Subtle cortical irregularity along the radial aspect of the distal radial metaphysis with no discrete fracture plane. No dislocation. Moderate first CMC joint space narrowing and juxta-articular osteophytosis. No suspicious bony lesions. Soft tissues: No suspicious soft tissue calcifications or masses. IMPRESSION: 1.Subtle cortical irregularity along the radial aspect of the distal radial metaphysis with no discre te fracture plane could represent a subtle nondisplaced fracture versus developmental variant. Recomm end a repeat radiograph in 10-14 days for further evaluation. 2.Moderate first CMC joint osteoarthritis. Reviewed by: Cristopher Douglass MD on 04/30/2023 5:22 PM PDT Approved by: Cristopher Douglass MD on 04/30/2023 5:22 PM PDT Station ID: [id number]
== END 2023-04-30 16:19 | disposition home or self-care (01) ==
LOC: DI.S 16:18
PROVIDERS: ATTEND Emergency Medicine
DX: M18.12 Unilateral primary osteoarthritis of first carpometacarpal joint, left hand (principal); S50.12XA Contusion of left forearm, initial encounter

== ENCOUNTER 2024-12-18 15:14 | Inpatient (IN) ==
--- NOTE | 2024-12-18 15:16 | ED Physician Documentation ---
History of Present Illness Stated complaint Stated Complaint: L HIP PX Chief complaint Chief Complaint: Trauma Ext History obtained from History obtained from: Patient and EMS Additonal information Additional information: This is an 79-year-old woman with history of MT, not anticoagulated. She was playing pickle ball today and tripped over her own feet landing on the left hip with moderate pain that is only mild at rest. She is unable to walk or bear weight. No other injuries. Meds/Allgy Home Medications Ambulatory Orders Medication Instructions Recorded Confirmed metoprolol succinate 25 mg 50 mg PO DAILY 12/14/19 tablet,extended release 24 hr (Toprol XL) aspirin 81 mg tablet,delayed 81 mg PO DAILY 12/15/19 1 02/18/24 release nitroglycerin 0.4 mg sublingual 0.4 mg sublingual Q5MI N PRN Angina 12/15/19 12/18/24 tablet #100 tabs cimetidine 200 mg tablet (Tagamet 200 mg PO QDAY 02/2612/18/24 HB) liothyronine 5 mcg tablet 10 mcg PO BID 02/27/2412/18 lisinopril 10 mg tablet 10 mg PO QDAY 02/27/2412/18 pravastatin 20 mg tablet 20 mg PO QDAY 02/27/2412/18 celecoxib 100 mg capsule 100 mg PO .2 x week PRN pain 08/27/24 12/18/24 Allergies Allergies Allergy/AdvReac Type Severity Reaction Status Date / Time erythromycin base Allergy Unknown Verified 08/27/24 14:18 telithromycin (From Ketek) Allergy Rash Verified 08/27/24 14:18 morphine AdvReac Intermediate Unknown Verified 08/27/24 14:18 PFSH Active Problems All Active Problems (Updated 12/18/24 @ 16:08 by Ty Cotton MD) Closed intertrochanteric fracture of left femur (Acute) Osteoarthritis (Acute) Encounter to establish care with new provider (Acute) Impacted cerumen, bilateral (Acute) Menopausal and postmenopausal disorder (Acute) Vitamin D2 deficiency (Acute) Osteoporosis (Acute) Arthritis of multiple sites (Acute) Gastric ulcer (Acute) Hx of heart artery stent (Acute) Mitral valve prolapse (Acute) Hypertension (Acute) Hyperlipidemia (Acute) Hypothyroidism (Acute) Coronary artery disease (Acute) Myocardial infarction (Acute) Chest pain (Acute) Surgical History Surgical History (Updated 02/25/24 @ 09:54 by Giselle Cavazos MA) History of open reduction and internal fixation (ORIF) procedure LEFT ELBOW H/O: hysterectomy (2015) H/O cystocele repair (2015) Bilateral acoustic neuromas (1963) Hx of tubal ligation (1983) History of tonsillectomy and adenoidectomy (1963) Hx of rotator cuff surgery (2008) Hx of cataract surgery (2004) H/O bilateral breast reduction surgery (2001) Hx of appendectomy (1981) Family History Family History (Updated 02/25/24 @ 09:56 by Giselle Cavazos MA) Father Cancer Anemia Mother Heart disease Social History Social History Smoking Status: Unknown if ever smoked If you are a former smoker, when did you quit? (Date/Year): 1967 Do you dip or chew tobacco?: No Patient requests smoking cessation consult: No Initiate information on smoking cessation: No Living arrangement: At home Living Condition: With spouse/s.o. Do you feel safe in your home environment?: Yes History of physical, verbal, emotional, or financial abuse?: No Are you sexually active?: No Exam Exam Vital Signs: Vital Signs x48h Temp Pulse Resp BP Pulse Ox 12/18/24 16:08 83 17 175/93 H 99 12/18/24 16:04 17 12/18/24 15:17 82 18 199/106 H 97 12/18/24 15:12 36.8 C 73 18 200/98 H 97 Constitutional normal general appearance and no apparent distress HENSC normocephalic Eyes PERRL Neck/C-Spine cervical spine nontender Respiratory breath sounds equal bilaterally, normal respiratory effort and clear to auscultation bilaterally Cardiovascular normal heart rate noted, regular rhythm noted and no murmur Gastrointestinal abdomen soft to palpation and nontender to palpation Extremities Focused examination of the left hip demonstrates she is tender over the greater trochanter. Relatively painless internal/external rotation. No pain with compression of the pelvis and AP or lateral directions. No shortening or rotation of the leg. Neurology GCS 15 Results Vitals Vitals: Vital Signs - 24 hr 12/18/24 15:12 12/18/24 15:17 12/18/24 16:04 Temperature 36.8 C Temperature Source Temporal Artery Scan Pulse Rate 73 82 Respiratory Rate 18 18 17 Blood Pressure 200/98 H 199/106 H O2 Saturation 97 97 O2 Source Room air Room air Pain Intensity 3 4 12/18/24 16:08 Temperature Temperature Source Pulse Rate 83 Respiratory Rate 17 Blood Pressure 175/93 H O2 Saturation 99 O2 Source Room air Pain Intensity 5 Oxygen O2 Source Room air PD Medical Decision Making ED course ED course: 79-year-old woman presents after an isolated left hip injury after a ground- level fall while playing pickleball. Three-view x-ray of the left hip independently interpreted by me demonstrates an intertrochanteric fracture with some displacement. Spoke with our on-call orthopedic surgeon, Dr. Nash at 4:04 PM and he plans to fix it tomorrow. Spoke with Dr. Dueñas the hospitalist for admission at about 4:08 PM. She was repeatedly offered analgesia in the emergency department and she really did not want anything. The patient and family are counseled as to the diagnosis and need for admission. This document was made in part using voice recognition software, while efforts are made to proofread this document, sound alike an grammatical errors may occur. Discharge Plan Discharge Patient Disposition: [facility] DC/Xfer Condition: Fair Clinical Impression: Closed intertrochanteric fracture of left femur Interventions: ED Admission Assessment Last Done: 12/18/24 17:05
--- NOTE | 2024-12-18 16:14 | XRAY Report ---
PROCEDURE: XR Hip w/Pelvis 2-3V LT INDICATIONS: hip inj TECHNIQUE: AP pelvis with AP and lateral lateral view(s) of the hip(s). COMPARISON: None. FINDINGS: Bones: Mildly displaced intertrochanteric fracture of the left hip. No dislocation. No other fractures or dislocations involving the pelvis and contralateral right hip. Soft tissues: No suspicious soft tissue calcifications or masses. IMPRESSION: Mildly displaced intratrochanteric fracture of the left hip. Reviewed by: Scott Wagner MD on 12/18/2024 4:10 PM PST Approved by: Scott Wagner MD on 12/18/2024 4:10 PM PST Station ID: [id number]
[2024-12-18 16:31] LABS: HCT - HEMATOCRIT 43.2 % (37.0-47.0); HGB - HEMOGLOBIN 15.0 g/dL (12.0-16.0); MEAN PLATELET VOLUME 9.5 fL (7.9-10.8); NRBC ABSOLUTE COUNT (AUTO) 0.00 x10^3/uL; NUCLEATED RED BLOOD CELLS AUTO 0.0 /100WBC; PLT - PLATELET COUNT 296 10^3/uL (130-450); RED CELL DISTRIBUTION WIDTH 12.5 % (12.0-15.0)
[2024-12-18 16:35] LABS: INR 1.1 (0.8-1.2); PT - PROTHROMBIN TIME 12.0 secs (9.9-12.6)
[2024-12-18 16:47] LABS: BUN - BLOOD UREA NITROGEN 21.0 mg/dL (6-20); CARBON DIOXIDE - CO2 29.0 mmol/L (21-32); CREATININE 0.8 mg/dL (0.6-1.3); GFR - MDRD 69.0 (>89)
[2024-12-18] MEDS ORDERED: ACETAMINOPHEN 325 MG TABLET PO PRN (16:54)
[2024-12-18] MEDS ORDERED: HYDROmorphone 0.5 MG/0.5 ML SYRINGE IVP PRN (16:54)
[2024-12-18] MEDS ORDERED: SODIUM CHLORIDE FLUSH 0.9% 10 ML SYRINGE IVP PRN (16:54)
[2024-12-18] MEDS ORDERED: oxyCODONE 5 MG TABLET PO PRN (16:54)
[2024-12-18] MEDS ORDERED: ONDANSETRON 4 MG/2 ML VIAL IVP PRN (16:54)
--- NOTE | 2024-12-18 16:55 | HISTORY & PHYSICAL EXAMINATION ---
Chief Complaint Chief Complaint Chief Complaint: left hip pain History of Present Illness Admitted From Admitted From:: home History Obtained From Records Reviewed: PCP notes History obtained from: Patient History of Present Illness HPI Comment/Other: 79F w PMH CAD, HTN, hypothyroid and osteoporosis presents to the ED after a fall on the pickleball court. She was moving quickly and this was a mechanical fall. She has no pain at rest, but unable to ambulate or move her left leg at all due to pain. Was in her usual states of health prior to this accident. Healthy and active. [place] partner [place] [facility]. Plays [employer]TCball 2x weekly, stacks [employer], [employer]. 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 partner Princess and daughter Cece are her surrogate medical decsion makers if she should need it. She does have a POLST at home, which she cannot recall what it states. She is independent in all ADLs. does not want to go to SNF for rehab post op. has 3 stairs to enter home, and a first floor bedroom and bathroom. Meds/Allgy Home Medications Ambulatory Orders Medication Instructions Recorded Confirmed metoprolol succinate 25 mg 50 mg PO DAILY 12/14/19 tablet,extended release 24 hr (Toprol XL) aspirin 81 mg tablet,delayed 81 mg PO DAILY 12/15/19 1 02/18/24 release nitroglycerin 0.4 mg sublingual 0.4 mg sublingual Q5MI N PRN Angina 12/15/19 12/18/24 tablet #100 tabs cimetidine 200 mg tablet (Tagamet 200 mg PO QDAY 02/2612/18/24 HB) liothyronine 5 mcg tablet 10 mcg PO BID 02/27/2412/18 lisinopril 10 mg tablet 10 mg PO QDAY 02/27/2412/18 pravastatin 20 mg tablet 20 mg PO QDAY 02/27/2412/18 celecoxib 100 mg capsule 100 mg PO .2 x week PRN pain 08/27/24 12/18/24 Allergies Allergies Allergy/AdvReac Type Severity Reaction Status Date / Time erythromycin base Allergy Unknown Verified 08/27/24 14:18 telithromycin (From Ketek) Allergy Rash Verified 08/27/24 14:18 morphine AdvReac Intermediate Unknown Verified 08/27/24 14:18 PFSH Active Problems All Active Problems (Updated 12/18/24 @ 16:08 by Ty Cotton MD) Closed intertrochanteric fracture of left femur (Acute) Osteoarthritis (Acute) Encounter to establish care with new provider (Acute) Impacted cerumen, bilateral (Acute) Menopausal and postmenopausal disorder (Acute) Vitamin D2 deficiency (Acute) Osteoporosis (Acute) Arthritis of multiple sites (Acute) Gastric ulcer (Acute) Hx of heart artery stent (Acute) Mitral valve prolapse (Acute) Hypertension (Acute) Hyperlipidemia (Acute) Hypothyroidism (Acute) Coronary artery disease (Acute) Myocardial infarction (Acute) Chest pain (Acute) Surgical History Surgical History (Updated 02/25/24 @ 09:54 by Giselle Cavazos MA) History of open reduction and internal fixation (ORIF) procedure LEFT ELBOW H/O: hysterectomy (2015) H/O cystocele repair (2015) Bilateral acoustic neuromas (1963) Hx of tubal ligation (1983) History of tonsillectomy and adenoidectomy (1963) Hx of rotator cuff surgery (2008) Hx of cataract surgery (2004) H/O bilateral breast reduction surgery (2001) Hx of appendectomy (1981) Family History Family History (Updated 02/25/24 @ 09:56 by Giselle Cavazos MA) Father Cancer Anemia Mother Heart disease Social History Social History Smoking Status: Unknown if ever smoked If you are a former smoker, when did you quit? (Date/Year): 1967 Do you dip or chew tobacco?: No Patient requests smoking cessation consult: No Initiate information on smoking cessation: No Living arrangement: At home Living Condition: With spouse/s.o. Do you feel safe in your home environment?: Yes History of physical, verbal, emotional, or financial abuse?: No Are you sexually active?: No POLST Patient has POLST: Yes POLST on file?: No POLST CPR Status: Do Not Attempt Resuscitation (DNAR) / Allow Natural Level of Medical Intervention: Full Treatment (OK to intubate) Review of Systems Status of ROS: 10 or more systems reviewed and unremarkable except as noted in history and below Prior Level of Functionality: independent, performs all ADLs, maintains 35 acres, stacks wood, gardens. enjoys reading when she is able to sit. Exam Exam Vital Signs: Vital Signs x48h Temp Pulse Resp BP Pulse Ox 11/13/25 16:27 88 18 181/94 H 98 12/18/24 16:08 83 17 175/93 H 99 12/18/24 16:04 17 12/18/24 15:17 82 18 199/106 H 97 12/18/24 15:12 36.8 C 73 18 200/98 H 97 Constitutional normal general appearance and no apparent distress HENMT normocephalic and head/scalp atraumatic small abrasion left side of nasal bridge, not related to this fall Eyes conjunctivae normal Neck/C-Spine visual inspection normal Lymph no lymphadenopathy noted Respiratory breath sounds equal bilaterally and normal respiratory effort Cardiovascular normal heart rate noted hypertensive, normally takes lisinopril and metoprolol at about 5pm Gastrointestinal abdomen soft to palpation Extremities left leg not shortened. 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 imaging shows left intertrochanteric femur fracture. Pain control with Tylenol, oxycodone and Dilaudid as needed. DVT prophylaxis with SCDs preop I will use Lovenox 40mg daily, on POD #1, until dc then ASA 81MG daily. This is standard protocol for Dr Nash, and this patient takes ASA for CAD already. Patient does not want to go to SNF post op. she is open to the idea of home health. Discussed with Dr Cotton in the ED, will admit for treatment of hip fracture. ED has contacted Dr Nash who is planning for operative repair of fracture on 12/19. (2) Osteoporosis: Plan: not on bisphosphonate treatment. She has history of elbow fracture on the left in Mar 2023. She regularly engages in weight bearing exercise. She will be started on Ca and Vit D post operatively for fracture healing. (3) Hx of heart artery stent: Plan: July 2019, stenting at [facility]. She sees Dr Orlando Steven in [place], just saw him in , and all was well. She took Plavix for 2 years post stenting and is now off of that. She takes asprin 81 mg daily. She has not had any anginal symptoms despite her active lifestyle. (4) Hypertension: Plan: She is hypertensive in the ED to 199/106. She denies any pain at rest. normally takes her metoprolol succinate 50mg and lisinopril 10mg at 1700. I have ordered these. (5) Hyperlipidemia: Plan: Will resume home statin when appropriate. 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 This includes time [id number], review and ordering of diagnostic imaging and laboratory studies and consultation with other providers. Monitoring the patient's signs symptoms, evaluation of medication effectiveness and patient's response to treatment. Lab Results Lab results reviewed: Yes 12/18/24 16:21 Diagnostic Imaging Results Diagnostic Imaging Results: positive Read independently Diagnostic Imaging Results Comments: left intertroch fx. No additional imaging indicated. EKG Results EKG Interpreted Independently: No Core Measures Anticipated LOS I expect patient to be DC'd or transferred within 96 hours.: Yes DVT/VTE - Prophylaxis VTE/DVT Device ordered at admit?: Yes VTE/DVT Prophylaxis med ordered at admit?: No Not Ordered - Medical Reason: Contraindicated (pre op)
[2024-12-18] MEDS: METOPROLOL SUCCINATE 50 MG TABLET PO SCH (17:37)
[2024-12-18] MEDS: HYDROcod/ACETAM 5/325 MG TABLET PO PRN (19:36)
[2024-12-18] MEDS: SODIUM CHLORIDE FLUSH 0.9% 10 ML SYRINGE IVP SCH (20:01)
[2024-12-19] MEDS: SODIUM CHLORIDE 0.9% 1,000 ML IV SCH (00:14)
[2024-12-19 06:13] LABS: HCT - HEMATOCRIT 37.5 % (37.0-47.0); HGB - HEMOGLOBIN 12.5 g/dL (12.0-16.0); MEAN PLATELET VOLUME 9.8 fL (7.9-10.8); NRBC ABSOLUTE COUNT (AUTO) 0.00 x10^3/uL; NUCLEATED RED BLOOD CELLS AUTO 0.0 /100WBC; PLT - PLATELET COUNT 252 10^3/uL (130-450); RED CELL DISTRIBUTION WIDTH 12.5 % (12.0-15.0)
[2024-12-19 06:34] LABS: BUN - BLOOD UREA NITROGEN 16.0 mg/dL (6-20); CARBON DIOXIDE - CO2 28.0 mmol/L (21-32); CREATININE 0.7 mg/dL (0.6-1.3); GFR - MDRD 81.0 (>89)
--- NOTE | 2024-12-19 10:16 | PROVIDER PROGRESS NOTE ---
Subjective Prog Note Date Prog Note Date: 12/19/24 Subjective Subjective: She is newly post op and asking to go home tomorrow. her daughter is coming to help at home. She also has her life partner at home. she has not been out of bed yet. Current Medications Current Medications Current Medications: Current Medications Generic Name Dose Route Start Last Admin Trade Name Freq PRN Reason Stop Dose Admin Acetaminophen 650 mg 12/18/24 16:54 Acetaminophen 325 Mg Tablet PO Q4HR PRN Pain 1 to 4, or Fever Hydrocodone Bitart/Acetaminophen 1 tab 12/18/24 18:22 12/19/24 10:13 Hydrocod/Acetam 5/325 Mg Tablet PO 1 tab Q4HR PRN Administration Moderate Pain (Level 4-6) Hydromorphone HCl 0.5 mg 12/18/24 16:54 Hydromorphone 0.5 Mg/0.5 Ml Syringe IVP Q2H PRN Pain 8 to 10 Sodium Chloride 1,000 mls @ 100 mls/hr 12/19/24 00:01 12/19/24 00:14 Normal Saline 0.9% IV 100 mls/hr .Q10H KARINA Administration Lisinopril 10 mg 12/19/24 08:17 Lisinopril 5 Mg Tablet PO 1800 KARINA Metoprolol Succinate 50 mg 12/19/24 08:18 Metoprolol Succinate 50 Mg Tablet PO 1800 KARINA Ondansetron HCl 4 mg 12/18/24 16:54 Ondansetron 4 Mg/2 Ml Vial IVP Q6HR PRN Nausea / Vomiting Sodium Chloride 10 ml 12/18/24 16:54 Sodium Chloride Flush 0.9% 10 Ml Syringe IVP PRN PRN NEEDED PER PROVIDER ORDERS Sodium Chloride 10 ml 12/18/24 17:00 12/19/24 08:36 Sodium Chloride Flush 0.9% 10 Ml Syringe IVP Not Given 0100,0900,1700 KARINA Objective Vital Signs/Intake & Output Reviewed Vital Signs: Yes Vital Signs: Vital Signs x48h Temp Pulse Resp BP Pulse Ox 12/19/24 08:13 2.5 C L 68 16 132/70 H 98 Intake & Output: Intake & Output 12/16/24 12/17/24 12/18/24 12/19/24 23:59 23:59 23:59 23:59 Intake Total 150 / 150 20 / 20 Output Total 100 / 100 450 / 450 Balance 50 / 50 -430 / -430 Weight (kg) 56.5 kg Objective General Appearance: positive No acute distress and Alert Eyes Bilateral: positive Normal inspection ENT: positive ENT inspection nml Neck: positive Nml inspection Respiratory: positive No respiratory distress Cardiovascular: positive Regular rate & rhythm Abdomen: positive Non-tender and No distention Skin: positive Color nml Extremities: positive Non-tender, No pedal edema and Other (surgical site with bulky dressing in place. minimal strike through) Neurologic/Psychiatric: positive Oriented x3 Lab Results 12/19/24 05:44 12/19/24 05:44 Other Labs: Lab Results x24hrs 12/19/24 12/18/24 12/18/24 Range/Units 05:44 16:50 16:21 WBC 7.0 6.4 (4.8-10.8) x10^3/uL RBC 4.04 L 4.73 (4.20-5.40) 10^6/uL Hgb 12.5 15.0 (12.0-16.0) g/dL Hct 37.5 43.2 (37.0-47.0) % MCV 92.8 91.3 (81.0-99.0) fL MCH 30.9 31.7 H (27.0-31.0) pg MCHC 33.3 34.7 (32.0-36.0) g/dL RDW 12.5 12.5 (12.0-15.0) % Plt Count 252 296 (130-450) 10^3/uL MPV 9.8 9.5 (7.9-10.8) fL Neut # (Auto) 4.2 4.3 (1.5-6.6) 10^3/uL Lymph # (Auto) 2.0 1.5 (1.5-3.5) 10^3/uL [place] # (Auto) 0.6 0.4 (0.0-1.0) 10^3/uL Eos # (Auto) 0.2 0.1 (0.0-0.7) 10^3/uL Baso # (Auto) 0.0 0.0 (0.0-0.1) 10^3/uL Absolute Nucleated RBC 0.00 0.00 x10^3/uL Nucleated RBC % 0.0 0.0 /100WBC PT 12.0 (9.9-12.6) secs INR 1.1 (0.8-1.2) Sodium 137 138 (135-145) mmol/L Potassium 4.1 4.2 (3.5-4.5) mmol/L Chloride 106 102 (101-111) mmol/L Carbon Dioxide 28 29 (21-32) mmol/L Anion Gap 3.0 L 7.0 (6-13) BUN 16 21 H (6-20) mg/dL Creatinine 0.7 0.8 (0.6-1.3) mg/dL Estimated GFR (MDRD) 81 L 69 L (>89) Glucose 94 99 (74-104) mg/dL Calcium 8.4 L 9.8 (8.5-10.3) mg/dL Blood Type B POSITIVE Blood Type Recheck B POSITIVE Antibody Screen NEGATIVE Assessment/Plan Problem List (1) Closed intertrochanteric fracture of left femur: 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 imaging shows left intertrochanteric femur fracture. repaired today with intramedullary melvin. EBL 50cc. I have ordered CBC in the AM to assess for post op anemia. Pain control with Tylenol, hydrocodone and Dilaudid as needed. DVT prophylaxis with SCDs I will use Lovenox 40mg daily, on POD #1, until dc then ASA 81MG BID with food. This is standard protocol for Dr Nash, and this patient takes ASA for CAD already. Patient does not want to go to SNF post op. she is open to the idea of home health. Home health order written this afternoon. (2) Osteoporosis: Impression: not on bisphosphonate treatment. She has history of elbow fracture on the left in Mar 2023. She regularly engages in weight bearing exercise. I have started her on Ca and Vit D post operatively for fracture healing. (3) Hx of heart artery stent: Impression: July 2019, stenting at [facility]. She sees Dr Orlando Steven in [place], just saw him in Oct/November, and all was well. She took Plavix for 2 years post stenting and is now off of that. She takes asprin 81 mg daily. She has not had any anginal symptoms despite her active lifestyle. (4) Hypertension: Impression: home meds have been restarted. (5) Hyperlipidemia: Impression: OK to resume statin on return home. (6) Hypothyroidism: Impression: resuming home meds in the AM. This patient's diagnosis and treatment plan was discussed this AM with attending physician as a part of multi disciplinary rounding meeting. I have spent 52 minutes in the care of this patient today. This includes time [id number], review and ordering of diagnostic imaging and laboratory studies and consultation with other providers. Monitoring the patient's signs symptoms, evaluation of medication effectiveness and patient's response to treatment. 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
[2024-12-19] MEDS ORDERED: BUPIVACAINE 0.25% PF 30 ML VIAL ONE (12:21)
--- NOTE | 2024-12-19 12:24 | CONSULTATION NOTE ---
Chief Complaint Chief Complaint Chief Complaint: Left hip pain History of Present Illness History of Present Illness HPI Comment/Other: The patient states that she was playing pickle ball and she was turning to go for a ball and tripped over her right foot and fell onto her left hip. She was brought to the emergency room was diagnosed with an intertrochanteric hip fracture and I have been consulted regarding management of the fracture. The patient states she has no other pain. Meds/Allgy Home Medications Ambulatory Orders Medication Instructions Recorded Confirmed metoprolol succinate 25 mg 50 mg PO DAILY 12/14/19 tablet,extended release 24 hr (Toprol XL) aspirin 81 mg tablet,delayed 81 mg PO DAILY 12/15/19 1 02/18/24 release nitroglycerin 0.4 mg sublingual 0.4 mg sublingual Q5MI N PRN Angina 12/15/19 12/18/24 tablet #100 tabs cimetidine 200 mg tablet (Tagamet 200 mg PO DAILY 02/0612/19/24 HB) liothyronine 5 mcg tablet 10 mcg PO BID 02/27/2412/18 lisinopril 10 mg tablet 10 mg PO DAILY 02/27/2412/06 pravastatin 20 mg tablet 20 mg PO DAILY 02/27/2412/06 celecoxib 100 mg capsule 100 mg PO .2 x week PRN pain 08/27/24 12/18/24 levothyroxine 50 mcg tablet 50 mcg PO DAILY 12/19/2402/19/24 Allergies Allergies Allergy/AdvReac Type Severity Reaction Status Date / Time erythromycin base Allergy Unknown Verified 08/27/24 14:18 telithromycin (From Ketek) Allergy Rash Verified 08/27/24 14:18 morphine AdvReac Intermediate Unknown Verified 08/27/24 14:18 PFSH Active Problems All Active Problems (Updated 12/18/24 @ 16:08 by Ty Cotton MD) Closed intertrochanteric fracture of left femur (Acute) Osteoarthritis (Acute) Encounter to establish care with new provider (Acute) Impacted cerumen, bilateral (Acute) Menopausal and postmenopausal disorder (Acute) Vitamin D2 deficiency (Acute) Osteoporosis (Acute) Arthritis of multiple sites (Acute) Gastric ulcer (Acute) Hx of heart artery stent (Acute) Mitral valve prolapse (Acute) Hypertension (Acute) Hyperlipidemia (Acute) Hypothyroidism (Acute) Coronary artery disease (Acute) Myocardial infarction (Acute) Chest pain (Acute) Surgical History Surgical History (Updated 02/25/24 @ 09:54 by Giselle Cavazos MA) History of open reduction and internal fixation (ORIF) procedure LEFT ELBOW H/O: hysterectomy (2015) H/O cystocele repair (2015) Bilateral acoustic neuromas (1963) Hx of tubal ligation (1983) History of tonsillectomy and adenoidectomy (1963) Hx of rotator cuff surgery (2008) Hx of cataract surgery (2004) H/O bilateral breast reduction surgery (2001) Hx of appendectomy (1981) Family History Family History (Updated 02/25/24 @ 09:56 by Giselle Cavazos MA) Father Cancer Anemia Mother Heart disease Social History Social History (Updated 12/18/24 @ 17:28 by Ty Cotton MD) Smoking Status: Unknown if ever smoked If you are a former smoker, when did you quit? (Date/Year): 50 years ago Second hand tobacco smoke exposure: No Do you dip or chew tobacco?: No Do you vape?: No Patient requests smoking cessation consult: No Initiate information on smoking cessation: No Living arrangement: At home Living Condition: With spouse/s.o. Level: Independent Do you feel safe in your home environment?: Yes History of physical, verbal, emotional, or financial abuse?: No Substance Use: denies use Are you sexually active?: No POLST Patient has POLST: Yes POLST on file?: No POLST CPR Status: Do Not Attempt Resuscitation (DNAR) / Allow Natural Level of Medical Intervention: Full Treatment (OK to intubate) Results Lab Results Lab results reviewed: Yes 12/19/24 05:44 12/19/24 05:44 Other Lab Results: Lab Results x24hrs 12/19/24 12/18/24 12/18/24 Range/Units 05:44 16:50 16:21 WBC 7.0 6.4 (4.8-10.8) x10^3/uL RBC 4.04 L 4.73 (4.20-5.40) 10^6/uL Hgb 12.5 15.0 (12.0-16.0) g/dL Hct 37.5 43.2 (37.0-47.0) % MCV 92.8 91.3 (81.0-99.0) fL MCH 30.9 31.7 H (27.0-31.0) pg MCHC 33.3 34.7 (32.0-36.0) g/dL RDW 12.5 12.5 (12.0-15.0) % Plt Count 252 296 (130-450) 10^3/uL MPV 9.8 9.5 (7.9-10.8) fL Neut # (Auto) 4.2 4.3 (1.5-6.6) 10^3/uL Lymph # (Auto) 2.0 1.5 (1.5-3.5) 10^3/uL Barton # (Auto) 0.6 0.4 (0.0-1.0) 10^3/uL Eos # (Auto) 0.2 0.1 (0.0-0.7) 10^3/uL Baso # (Auto) 0.0 0.0 (0.0-0.1) 10^3/uL Absolute Nucleated RBC 0.00 0.00 x10^3/uL Nucleated RBC % 0.0 0.0 /100WBC PT 12.0 (9.9-12.6) secs INR 1.1 (0.8-1.2) Sodium 137 138 (135-145) mmol/L Potassium 4.1 4.2 (3.5-4.5) mmol/L Chloride 106 102 (101-111) mmol/L Carbon Dioxide 28 29 (21-32) mmol/L Anion Gap 3.0 L 7.0 (6-13) BUN 16 21 H (6-20) mg/dL Creatinine 0.7 0.8 (0.6-1.3) mg/dL Estimated GFR (MDRD) 81 L 69 L (>89) Glucose 94 99 (74-104) mg/dL Calcium 8.4 L 9.8 (8.5-10.3) mg/dL Blood Type B POSITIVE Blood Type Recheck B POSITIVE Antibody Screen NEGATIVE Exam Exam Vital Signs: Vital Signs x48h Temp Pulse Resp BP Pulse Ox 12/19/24 08:13 2.5 C L 68 16 132/70 H 98 Physical exam directed towards the left hip reveals the left lower extremity to be shortened and externally rotated she does have significant tenderness to palpation of the greater trochanteric region she is unable to straight leg raise. She is neurovascularly intact. Conclusion/Plan Problem List (1) Closed intertrochanteric fracture of left femur: Plan: The patient does have an intertrochanteric hip fracture of her left femur and we have reviewed the injury and I have recommended intramedullary melvin fixation. The patient understands all the risks and benefits of the procedure she does wish to proceed and she did sign a consent. This is planned to be done today at around 1 PM. 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
[2024-12-19] MEDS ORDERED: fentaNYL 100 MCG/2 ML VIAL ONE ×3 (13:06→15:05)
[2024-12-19] MEDS ORDERED: LIDOCAINE-PF 2% 10 ML AMP SUBQ ONE (13:07)
[2024-12-19] MEDS ORDERED: MIDAZOLAM 2 MG/2 ML VIAL ONE (13:27)
[2024-12-19] MEDS ORDERED: PROPOFOL 200 MG/20 ML VIAL IVP ONE (13:50)
[2024-12-19] MEDS ORDERED: ePHEDrine 50 MG/ML VIAL IVP ONE (13:56)
[2024-12-19] MEDS ORDERED: SUGAMMADEX 200 MG/2 ML VIAL IVP ONE (14:14)
[2024-12-19] MEDS ORDERED: ACETAMINOPHEN 1,000 MG/100 ML 1,000 MG/100 ML BAG IV ONE (14:18)
--- NOTE | 2024-12-19 14:28 | OPERATIVE REPORT ---
Operative Report General Admit Date: 12/18/24 Procedure Data: Operation Date: 12/19/24 12:30 Proposed Procedures p Hip Nailing(Left) - Rene Nash DO Anesthesia Type General Pre-Op Diagnosis: Left hip intertrochanteric fracture Post Op Diagnosis: Left hip intertrochanteric fracture Procedure Note Estimated Blood Loss (ml): 50 Indications: Left hip intertrochanteric fracture Complications: None Other Other Information/Narrative: Patient is an 79-year-old female who was diagnosed with a left hip intertrochanteric fracture I have been consulted regarding management of the fracture. She understands all the risks and benefits and did sign a consent for the procedure The left hip intertrochanteric fracture is a difficult procedure that requires assistance of the physician respiratory care assistant and Lizzie STOLL assisted with retraction and fracture reduction while I put in the instrumentation. After the left hip was prepped and draped in usual sterile fashion we made about a 4 to 5 cm incision from the tip of the trochanter proximal dissection was taken down to the greater trochanteric region we did go ahead and insert a pin on the tip of the greater trochanter and inserted it into the femur we confirmed this on physician guided fluoroscopy and then we drilled our outer hole. At that time we took a 10 mm melvin we started it in the tip of the troches across the fracture site without any complication once we got it seated all the way down we inserted the guidepin up into the ball of the hip and we measured it to be about 102 mm and given that it was through the femoral head we decided to subtract 15 for 85 mm screw. We inserted the 85 mm lag screw with the compression screw behind it and that was done without any complication. At that time we made a separate incision distally for the locking screw which was about 2 cm and dissection was taken down to the bone we put the 30 2.5 millimeter screw distally to lock the fracture and melvin into place. We did confirm this on AP and lateral physician guided fluoroscopy and everything was near-anatomic at that point we did a thorough irrigation we closed the deep tissue with 0 Vicryl the subcu with 2-0 Vicryl the skin was closed with tom a sterile dressing was applied the patient was awakened and transferred stable to recovery room
[2024-12-19] MEDS ORDERED: MORPHINE 2 MG/ML CARPUJECT IVP PRN (15:01)
[2024-12-19] MEDS ORDERED: ATROPINE ABBOJECT 1 MG/10 ML SYRINGE IVP PRN (15:01)
[2024-12-19] MEDS ORDERED: NALOXONE 0.4 MG/ML VIAL IVP PRN (15:01)
[2024-12-19] MEDS ORDERED: METOCLOPRAMIDE 10 MG/2 ML VIAL IVP PRN (15:01)
[2024-12-19] MEDS ORDERED: ONDANSETRON 4 MG/2 ML VIAL IVP PRN (15:01)
[2024-12-19] MEDS ORDERED: ePHEDrine 50 MG/ML VIAL IVP PRN (15:01)
[2024-12-19] MEDS ORDERED: HYDROmorphone 0.5 MG/0.5 ML SYRINGE IVP PRN (15:01)
[2024-12-19] MEDS: fentaNYL 100 MCG/2 ML VIAL IVP PRN (15:10)
[2024-12-19] MEDS ORDERED: LACTATED RINGERS 1,000 ML IV SCH (16:00)
--- NOTE | 2024-12-19 16:00 | XRAY Report ---
PROCEDURE: FL OR C-Arm Procedure INDICATIONS: Left Hip IM nail in OR 3 TECHNIQUE: Intraoperative fluoroscopic examination. Dose area product is 35.52 uGy*sq m. Fluoroscopy time is 2 seconds. Number of images submitted is 2. COMPARISON: December 18, 2024 FINDINGS: Intramedullary nail fixation of intertrochanteric femur fracture with improved alignment IMPRESSION: Intraoperative fluoroscopic examination as above. Reviewed by: Eduardo Perez MD on 12/19/2024 3:57 PM PST Approved by: Eduardo Perez MD on 12/19/2024 3:57 PM PST Station ID: [id number]
[2024-12-19] MEDS: HYDROmorphone 1 MG/ML CARPUJECT IVP PRN (16:14)
--- NOTE | 2024-12-19 16:29 | ANESTHESIA POST OP EVALUATION ---
Anesthesia Post Eval Post Anesthesia Eval Vitals: Last Vital Signs Temp 36.2 C L 12/19/24 15:20 Pulse 83 12/19/24 15:30 Resp 21 12/19/24 15:30 BP 136/73 H 12/19/24 15:30 Pulse Ox 94 12/19/24 15:30 CV Function Including HR & BP: Stable Pain Control: Satisfactory Nausea & Vomiting: Negative Mental Status: Baseline Respiratory Status: Airway Patent Hydration Status: Satisfactory Anesthesia Complications: None
--- NOTE | 2024-12-19 16:33 | ANESTHESIA PROCEDURE NOTE ---
Pre-Anesthesia VS, & Labs Diagnosis Surgical Diagnosis:: L femur fracture Procedure Procedure: ORIF L femur Vitals Vital Signs: Temp Pulse Resp BP Pulse Ox 36.2 C L 83 21 136/73 H 94 12/19/24 15:20 12/19/24 15:30 12/19/24 15:30 12/19/24 15:30 12/19/24 15:30 NPO NPO: >8 hours Is Patient ?: Not Applicable Lab Results Current Lab Results: Laboratory Tests 12/19/24 05:44: WBC 7.0, RBC 4.04 L, Hgb 12.5, Hct 37.5, MCV 92.8, MCH 30.9, MCHC 33.3, RDW 12.5, Plt Count 252, MPV 9.8, Neut # (Auto) 4.2, Lymph # (Auto) 2.0, Eddy # (Auto) 0.6, Eos # (Auto) 0.2, Baso # (Auto) 0.0, Absolute Nucleated RBC 0.00, Nucleated RBC % 0.0, Sodium 137, Potassium 4.1, Chloride 106, Carbon Dioxide 28, Anion Gap 3.0 L, BUN 16, Creatinine 0.7, Estimated GFR (MDRD) 81 L, Glucose 94, Calcium 8.4 L 12/18/24 16:50: Blood Type Recheck B POSITIVE 12/18/24 16:21: WBC 6.4, RBC 4.73, Hgb 15.0, Hct 43.2, MCV 91.3, MCH 31.7 H, MCHC 34.7, RDW 12.5, Plt Count 296, MPV 9.5, Neut # (Auto) 4.3, Lymph # (Auto) 1.5, Eddy # (Auto) 0.4, Eos # (Auto) 0.1, Baso # (Auto) 0.0, Absolute Nucleated RBC 0.00, Nucleated RBC % 0.0, PT 12.0, INR 1.1, Sodium 138, Potassium 4.2, Chloride 102, Carbon Dioxide 29, Anion Gap 7.0, BUN 21 H, Creatinine 0.8, E stimated GFR (MDRD) 69 L, Glucose 99, Calcium 9.8, Blood Type B POSITIVE, Antibody Screen NEGATIVE 12/19/24 05:44 12/19/24 05:44 Meds/Allgy Home Medications Ambulatory Orders Medication Instructions Recorded Confirmed metoprolol succinate 25 mg 50 mg PO DAILY 12/14/19 tablet,extended release 24 hr (Toprol XL) aspirin 81 mg tablet,delayed 81 mg PO DAILY 12/15/19 1 02/18/24 release nitroglycerin 0.4 mg sublingual 0.4 mg sublingual Q5MI N PRN Angina 12/15/19 12/18/24 tablet #100 tabs cimetidine 200 mg tablet (Tagamet 200 mg PO DAILY 02/0612/19/24 HB) liothyronine 5 mcg tablet 10 mcg PO BID 02/27/2412/18 lisinopril 10 mg tablet 10 mg PO DAILY 02/27/2412/06 pravastatin 20 mg tablet 20 mg PO DAILY 02/27/2412/06 celecoxib 100 mg capsule 100 mg PO .2 x week PRN pain 08/27/24 12/18/24 levothyroxine 50 mcg tablet 50 mcg PO DAILY 12/19/2402/19/24 Allergies Allergies Allergy/AdvReac Type Severity Reaction Status Date / Time erythromycin base Allergy Unknown Verified 08/27/24 14:18 telithromycin (From Ketek) Allergy Rash Verified 08/27/24 14:18 morphine AdvReac Intermediate Unknown Verified 08/27/24 14:18 PFS Active Problems All Active Problems Closed intertrochanteric fracture of left femur (Acute) Osteoarthritis (Acute) Encounter to establish care with new provider (Acute) Impacted cerumen, bilateral (Acute) Menopausal and postmenopausal disorder (Acute) Vitamin D2 deficiency (Acute) Osteoporosis (Acute) Arthritis of multiple sites (Acute) Gastric ulcer (Acute) Hx of heart artery stent (Acute) Mitral valve prolapse (Acute) Hypertension (Acute) Hyperlipidemia (Acute) Hypothyroidism (Acute) Coronary artery disease (Acute) Myocardial infarction (Acute) Chest pain (Acute) Surgical History Surgical History History of open reduction and internal fixation (ORIF) procedure LEFT ELBOW H/O: hysterectomy (2015) H/O cystocele repair (2015) Bilateral acoustic neuromas (1963) Hx of tubal ligation (1983) History of tonsillectomy and adenoidectomy (1963) Hx of rotator cuff surgery (2008) Hx of cataract surgery (2004) H/O bilateral breast reduction surgery (2001) Hx of appendectomy (1981) Family History Family History Father Cancer Anemia Mother Heart disease Social History Social History Smoking Status: Unknown if ever smoked If you are a former smoker, when did you quit? (Date/Year): 50 years ago Second hand tobacco smoke exposure: No Do you dip or chew tobacco?: No Do you vape?: No Patient requests smoking cessation consult: No Initiate information on smoking cessation: No Living arrangement: At home Living Condition: With spouse/s.o. Level: Independent Do you feel safe in your home environment?: Yes History of physical, verbal, emotional, or financial abuse?: No Substance Use: denies use Are you sexually active?: No POLST Patient has POLST: Yes POLST on file?: No POLST CPR Status: Do Not Attempt Resuscitation (DNAR) / Allow Natural Level of Medical Intervention: Full Treatment (OK to intubate) Anesthesia Exam (Expanded) Exam General: Alert, Oriented x3 and Cooperative Dental: WNL Mouth Openin Fingerbreadth Neck Mobility: Normal Mallampati classification: I Thyromental Distance: 4-6 cm Respiratory: Lungs clear Cardiovascular: Regular rate Exam Exam Vital Signs: Vital Signs x48h Temp Pulse Pulse Resp BP Pulse Ox 12/19/24 15:30 83 21 136/73 H 94 12/19/24 15:25 76 9 L 146/77 H 98 12/19/24 15:20 36.2 C L 84 10 L 146/72 H 97 12/19/24 15:15 84 18 136/72 H 92 12/19/24 15:10 87 10 L 143/75 H 99 12/19/24 15:05 97 15 139/77 H 96 12/19/24 15:00 91 16 135/71 H 97 12/19/24 14:55 93 7 L 136/72 H 96 12/19/24 14:50 107 H 21 139/66 H 97 12/19/24 14:47 36.3 C L 89 18 146/68 H 97 12/19/24 10:00 36.5 C 70 18 97 Plan Problem List (1) Closed intertrochanteric fracture of left femur: Plan: The patient does have an intertrochanteric hip fracture of her left femur and we have reviewed the injury and I have recommended intramedullary melvin fixation. The patient understands all the risks and benefits of the procedure she does wish to proceed and she did sign a consent. This is planned to be done today at around 1 PM. 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
--- NOTE | 2024-12-19 17:08 | PHARMACY PROGRESS NOTE ---
Best Possible Medication History Admit Date and Time: 12/18/24 1611 Home Medications Medication Instructions Recorded Confirmed Type metoprolol succinate 25 mg 50 mg PO QPM 12/14/1912/19 History tablet,extended release 24 hr (Toprol XL) aspirin 81 mg tablet,delayed 81 mg PO QPM 12/15/19 History release nitroglycerin 0.4 mg sublingual 0.4 mg sublingual Q5MI N PRN Angina 12/15/19 12/18/24 Rx tablet #100 tabs cimetidine 200 mg tablet (Tagamet 200 mg PO DAILY 02/0612/19/24 History HB) liothyronine 5 mcg tablet 10 mcg PO DAILY 02/27/24 History lisinopril 10 mg tablet 10 mg PO QPM 02/27/24 History pravastatin 20 mg tablet 20 mg PO QPM 02/27/24 History celecoxib 100 mg capsule 100 mg PO .2 x week PRN pain 08/27/24 12/18/24 History levothyroxine 50 mcg tablet 50 mcg PO DAILY 12/19/24 1 02/19/24 History liothyronine 5 mcg tablet (Cytomel) 5 mcg PO QPM 12/1912/19/24 History Processed by: Pharmacy Medications reviewed in ED?: Yes Medication History completed: Yes Patient Interview: Completed Secondary Source(s): Insurance records [facility] Statement: As the person ultimately responsible for medication therapy, providers are able to order a medication from an existing home medication list in [facility] via the "Reconcile Routine" prior to Confirmation of that medication by administrative support manager. Such practice is discouraged except when the physician, in their clinical judgment, deems that a medical need exists for a medication without regard to previous use.
[2024-12-19] MEDS: METOPROLOL SUCCINATE 50 MG TABLET PO SCH (17:48)
[2024-12-19] MEDS: LIOTHYRONINE 5 MCG TABLET PO SCH ×2 (17:53→18:02)
[2024-12-19] MEDS: ACETAMINOPHEN 500 MG TABLET PO SCH (18:02)
[2024-12-19] MEDS: CALCIUM CARBONATE CHEW 500 MG TABLET PO SCH (21:26)
[2024-12-20] MEDS: LEVOTHYROXINE 25 MCG TABLET PO SCH (06:13)
[2024-12-20 06:14] LABS: HCT - HEMATOCRIT 34.3 % (37.0-47.0); HGB - HEMOGLOBIN 11.0 g/dL (12.0-16.0); MEAN PLATELET VOLUME 10.2 fL (7.9-10.8); NRBC ABSOLUTE COUNT (AUTO) 0.00 x10^3/uL; NUCLEATED RED BLOOD CELLS AUTO 0.0 /100WBC; PLT - PLATELET COUNT 255 10^3/uL (130-450); RED CELL DISTRIBUTION WIDTH 12.9 % (12.0-15.0)
[2024-12-20 06:36] LABS: BUN - BLOOD UREA NITROGEN 13.0 mg/dL (6-20); CARBON DIOXIDE - CO2 28.0 mmol/L (21-32); CREATININE 0.6 mg/dL (0.6-1.3); GFR - MDRD 96.0 (>89)
[2024-12-20] MEDS: CHOLECALCIFEROL 400 UNIT TABLET PO SCH (08:39)
[2024-12-20] MEDS: ENOXAPARIN 40 MG/0.4 ML SYRINGE SUBQ SCH ×2 (08:39→17:08)
--- NOTE | 2024-12-20 12:09 | PROVIDER PROGRESS NOTE ---
Subjective Prog Note Date Prog Note Date: 12/20/24 Subjective Subjective: She had planned to go home today, but she was not able to make it to the edge of the bed this AM. She is reckoning with this right now. She understands that she needs to stay here until she is either able to ambulate enough to get home, or to SNF. Otherwise, no complaints, pain controlled, eating and drinking. Current Medications Current Medications Current Medications: Current Medications Generic Name Dose Route Start Last Admin Trade Name Nuha PRN Reason Stop Dose Admin Acetaminophen 1,000 mg 12/19/24 16:51 12/20/24 06:13 Acetaminophen 500 Mg Tablet PO 1,000 mg TID KARINA Administration Hydrocodone Bitart/Acetaminophen 1 tab 12/18/24 18:22 12/20/24 10:01 Hydrocod/Acetam 5/325 Mg Tablet PO 1 tab Q4HR PRN Administration Moderate Pain (Level 4-6) Calcium Carbonate/Glycine 500 mg 12/19/24 21:00 12/20/24 08:39 Calcium Carbonate Chew 500 Mg Tablet PO 500 mg BID KARINA Administration Cholecalciferol 800 unit 12/20/24 09:00 12/20/24 08:39 Cholecalciferol 400 Unit Tablet PO 800 unit DAILY KARINA Administration Enoxaparin Sodium 40 mg 12/20/24 09:00 12/20/24 08:39 Enoxaparin 40 Mg/0.4 Ml Syringe SUBQ 40 mg DAILY KARINA Administration Hydromorphone HCl 0.5 mg 12/19/24 16:07 12/19/24 16:14 Hydromorphone 1 Mg/Ml Carpuject IVP 0.5 mg Q2H PRN Administration Pain 8 to 10 Levothyroxine Sodium 50 mcg 12/20/24 07:00 12/20/24 06:13 Levothyroxine 25 Mcg Tablet PO 50 mcg 0700 KARINA Administration Liothyronine Sodium 10 mcg 12/19/24 07:00 12/20/24 06:13 Liothyronine 5 Mcg Tablet PO 10 mcg 0700 KARINA Administration Liothyronine Sodium 5 mcg 12/19/24 18:00 12/19/24 18:02 Liothyronine 5 Mcg Tablet PO 5 mcg 1800 KARINA Administration Lisinopril 10 mg 12/19/24 08:17 12/19/24 17:49 Lisinopril 5 Mg Tablet PO 10 mg 1800 KARINA Administration Metoprolol Succinate 50 mg 12/19/24 08:18 12/19/24 17:48 Metoprolol Succinate 50 Mg Tablet PO 50 mg 1800 KARINA Administration Ondansetron HCl 4 mg 12/18/24 16:54 Ondansetron 4 Mg/2 Ml Vial IVP Q6HR PRN Nausea / Vomiting Sodium Chloride 10 ml 12/18/24 16:54 Sodium Chloride Flush 0.9% 10 Ml Syringe IVP PRN PRN NEEDED PER PROVIDER ORDERS Sodium Chloride 10 ml 12/18/24 17:00 12/20/24 08:39 Sodium Chloride Flush 0.9% 10 Ml Syringe IVP 10 ml 0100,0900,1700 KARINA Administration Objective Vital Signs/Intake & Output Reviewed Vital Signs: Yes Vital Signs: Vital Signs x48h Temp Pulse Resp BP Pulse Ox O2 Flow Rate 12/20/24 07:46 36.5 C 76 20 129/63 97 12/20/24 05:23 36.3 C L 73 18 128/66 99 1 Intake & Output: Intake & Output 12/17/24 12/18/24 12/19/24 12/20/24 23:59 23:59 23:59 23:59 Intake Total 150 / 150 2267 / 2267 100 / 100 Output Total 100 / 100 1850 / 1850 200 / 200 Balance 50 / 50 417 / 417 -100 / -100 Weight (kg) 56.5 kg Objective General Appearance: positive No acute distress and Alert Eyes Bilateral: positive Normal inspection ENT: positive ENT inspection nml Neck: positive Nml inspection Respiratory: positive No respiratory distress Cardiovascular: positive Regular rate & rhythm Abdomen: positive Non-tender and No distention Skin: positive Color nml Extremities: positive Non-tender, No pedal edema and Other (surgical site with bulky dressing in place. minimal strike through) Neurologic/Psychiatric: positive Oriented x3 Lab Results 12/20/24 05:20 12/20/24 05:20 Other Labs: Lab Results x24hrs 12/20/24 Range/Units 05:20 WBC 8.2 (4.8-10.8) x10^3/uL RBC 3.60 L (4.20-5.40) 10^6/uL Hgb 11.0 L (12.0-16.0) g/dL Hct 34.3 L (37.0-47.0) % MCV 95.3 (81.0-99.0) fL MCH 30.6 (27.0-31.0) pg MCHC 32.1 (32.0-36.0) g/dL RDW 12.9 (12.0-15.0) % Plt Count 255 (130-450) 10^3/uL MPV 10.2 (7.9-10.8) fL Neut # (Auto) 5.5 (1.5-6.6) 10^3/uL Lymph # (Auto) 1.7 (1.5-3.5) 10^3/uL [place] # (Auto) 0.7 (0.0-1.0) 10^3/uL Eos # (Auto) 0.2 (0.0-0.7) 10^3/uL Baso # (Auto) 0.0 (0.0-0.1) 10^3/uL Absolute Nucleated RBC 0.00 x10^3/uL Nucleated RBC % 0.0 /100WBC Sodium 136 (135-145) mmol/L Potassium 4.3 (3.5-4.5) mmol/L Chloride 105 (101-111) mmol/L Carbon Dioxide 28 (21-32) mmol/L Anion Gap 3.0 L (6-13) BUN 13 (6-20) mg/dL Creatinine 0.6 (0.6-1.3) mg/dL Estimated GFR (MDRD) 96 (>89) Glucose 96 (74-104) mg/dL Calcium 8.4 L (8.5-10.3) mg/dL Assessment/Plan Problem List (1) Closed intertrochanteric fracture of left femur: 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 imaging shows left intertrochanteric femur fracture. repaired intramedullary melvin. EBL 50cc. Today is POD #1 Pain control with Tylenol, hydrocodone and Dilaudid as needed. I am going to re order po APAP, although she also have hydrocodone/APAP as well. DVT prophylaxis with SCDs I will use Lovenox 40mg daily, on POD #1, until dc then ASA 81MG BID with food. This is standard protocol for Dr Nash, and this patient takes ASA for CAD already. Patient does not want to go to SNF post op. she is open to the idea of home health. Home health order written this afternoon. (2) Osteoporosis: Impression: not on bisphosphonate treatment. She has history of elbow fracture on the left in Mar 2023. She regularly engages in weight bearing exercise. I have started her on Ca and Vit D post operatively for fracture healing. (3) Hx of heart artery stent: Impression: July 2019, stenting at [facility]. She sees Dr Orlando Steven in [place], just saw him in , and all was well. She took Plavix for 2 years post stenting and is now off of that. She takes asprin 81 mg daily. She has not had any anginal symptoms despite her active lifestyle. (4) Hypertension: Impression: home meds have been restarted. (5) Hyperlipidemia: Impression: OK to resume statin on return home. (6) Hypothyroidism: Impression: resuming home meds in the AM. This patient's diagnosis and treatment plan was discussed this AM with attending physician as a part of multi disciplinary rounding meeting. I have spent 38 minutes in the care of this patient today. This includes time [id number], review and ordering of diagnostic imaging and laboratory studies and consultation with other providers. Monitoring the patient's signs symptoms, evaluation of medication effectiveness and patient's response to treatment. 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
[2024-12-20] MEDS ORDERED: ACETAMINOPHEN 325 MG TABLET PO PRN (12:14)
[2024-12-20] MEDS: CELECOXIB 100 MG CAPSULE PO SCH (21:17)
[2024-12-20] MEDS: DOCUSATE SODIUM 250 MG CAPSULE PO SCH (21:17)
[2024-12-20] MEDS: GABAPENTIN 100 MG CAPSULE PO SCH (21:17)
[2024-12-21 05:51] LABS: HCT - HEMATOCRIT 28.9 % (37.0-47.0); HGB - HEMOGLOBIN 9.7 g/dL (12.0-16.0); MEAN PLATELET VOLUME 9.8 fL (7.9-10.8); NRBC ABSOLUTE COUNT (AUTO) 0.00 x10^3/uL; NUCLEATED RED BLOOD CELLS AUTO 0.0 /100WBC; PLT - PLATELET COUNT 219 10^3/uL (130-450); RED CELL DISTRIBUTION WIDTH 12.7 % (12.0-15.0)
[2024-12-21 06:11] LABS: BUN - BLOOD UREA NITROGEN 14.0 mg/dL (6-20); CARBON DIOXIDE - CO2 28.0 mmol/L (21-32); CREATININE 0.6 mg/dL (0.6-1.3); GFR - MDRD 96.0 (>89)
[2024-12-21] MEDS: ACETAMINOPHEN 500 MG TABLET PO SCH (08:36)
--- NOTE | 2024-12-21 13:09 | PROVIDER PROGRESS NOTE ---
Subjective Prog Note Date Prog Note Date: 12/21/24 Subjective Subjective: She is surprised at the degree of disability that she currently has. She was able to work with PT this morning and overcame some of the fear of movement that she has. Current Medications Current Medications Current Medications: Current Medications Generic Name Dose Route Start Last Admin Trade Name Freq PRN Reason Stop Dose Admin Acetaminophen 650 mg 12/20/24 12:14 Acetaminophen 325 Mg Tablet PO Q4HR PRN Pain or Fever > 38C (100.4F) Acetaminophen 500 mg 12/21/24 09:00 12/21/24 08:36 Acetaminophen 500 Mg Tablet PO Not Given BID KARINA Hydrocodone Bitart/Acetaminophen 2 tab 12/21/24 11:02 Hydrocod/Acetam 5/325 Mg Tablet PO Q4HR PRN Moderate Pain (Level 4-6) Calcium Carbonate/Glycine 500 mg 12/19/24 21:00 12/21/24 08:35 Calcium Carbonate Chew 500 Mg Tablet PO 500 mg BID KARINA Administration Celecoxib 100 mg 12/20/24 21:00 12/21/24 08:35 Celecoxib 100 Mg Capsule PO 100 mg BID KARINA Administration Cholecalciferol 800 unit 12/20/24 09:00 12/21/24 08:36 Cholecalciferol 400 Unit Tablet PO 800 unit DAILY KARINA Administration Docusate Sodium 250 - 500 mg 12/20/24 20:00 12/21/24 08:34 Docusate Sodium 250 Mg Capsule PO 250 mg DAILY KARINA Administration Enoxaparin Sodium 40 mg 12/20/24 09:00 12/21/24 08:37 Enoxaparin 40 Mg/0.4 Ml Syringe SUBQ 40 mg DAILY KARINA Administration Gabapentin 100 mg 12/20/24 22:00 12/21/24 06:26 Gabapentin 100 Mg Capsule PO 100 mg TID KARINA Administration Hydromorphone HCl 0.5 mg 12/19/24 16:07 12/21/24 11:28 Hydromorphone 1 Mg/Ml Carpuject IVP 0.5 mg Q2H PRN Administration Pain 8 to 10 Levothyroxine Sodium 50 mcg 12/20/24 07:00 12/21/24 06:26 Levothyroxine 25 Mcg Tablet PO 50 mcg 0700 KARINA Administration Liothyronine Sodium 10 mcg 12/19/24 07:00 12/21/24 06:26 Liothyronine 5 Mcg Tablet PO 10 mcg 0700 KARINA Administration Liothyronine Sodium 5 mcg 12/19/24 18:00 12/20/24 18:32 Liothyronine 5 Mcg Tablet PO 5 mcg 1800 KARINA Administration Lisinopril 10 mg 12/19/24 08:17 12/20/24 18:32 Lisinopril 5 Mg Tablet PO 10 mg 1800 KARINA Administration Metoprolol Succinate 50 mg 12/19/24 08:18 12/20/24 18:32 Metoprolol Succinate 50 Mg Tablet PO 50 mg 1800 KARINA Administration Ondansetron HCl 4 mg 12/18/24 16:54 Ondansetron 4 Mg/2 Ml Vial IVP Q6HR PRN Nausea / Vomiting Polyethylene Glycol 17 gm 12/21/24 09:00 12/21/24 08:34 Polyethylene Glycol 3350 17 Gm Packet PO 17 gm DAILY KARINA Administration Sodium Chloride 10 ml 12/18/24 16:54 Sodium Chloride Flush 0.9% 10 Ml Syringe IVP PRN PRN NEEDED PER PROVIDER ORDERS Sodium Chloride 10 ml 12/18/24 17:00 12/21/24 08:37 Sodium Chloride Flush 0.9% 10 Ml Syringe IVP 10 ml 0100,0900,1700 KARINA Administration Objective Vital Signs/Intake & Output Reviewed Vital Signs: Yes Vital Signs: Vital Signs x48h Temp Pulse Resp BP Pulse Ox 12/21/24 07:42 36.6 C 74 16 124/63 100 12/21/24 05:19 36.4 C L 77 16 142/61 H 97 Intake & Output: Intake & Output 12/18/24 12/19/24 12/20/24 12/21/24 23:59 23:59 23:59 23:59 Intake Total 150 / 150 2267 / 2267 820 / 820 440 / 440 Output Total 100 / 100 1850 / 1850 1200 / 1200 250 / 250 Balance 50 / 50 417 / 417 -380 / -380 190 / 190 Weight (kg) 56.5 kg Objective General Appearance: positive No acute distress and Alert Eyes Bilateral: positive Normal inspection ENT: positive ENT inspection nml Neck: positive Nml inspection Respiratory: positive No respiratory distress Cardiovascular: positive Regular rate & rhythm Abdomen: positive Non-tender and No distention Skin: positive Color nml Extremities: positive Non-tender, No pedal edema and Other (dresssing taken down and replaced with water tight silver dressing) Neurologic/Psychiatric: positive Oriented x3 Lab Results 12/21/24 05:19 12/21/24 05:19 Other Labs: Lab Results x24hrs 12/21/24 Range/Units 05:19 WBC 6.9 (4.8-10.8) x10^3/uL RBC 3.10 L (4.20-5.40) 10^6/uL Hgb 9.7 L (12.0-16.0) g/dL Hct 28.9 L (37.0-47.0) % MCV 93.2 (81.0-99.0) fL MCH 31.3 H (27.0-31.0) pg MCHC 33.6 (32.0-36.0) g/dL RDW 12.7 (12.0-15.0) % Plt Count 219 (130-450) 10^3/uL MPV 9.8 (7.9-10.8) fL Neut # (Auto) 4.0 (1.5-6.6) 10^3/uL Lymph # (Auto) 2.0 (1.5-3.5) 10^3/uL Clarke # (Auto) 0.6 (0.0-1.0) 10^3/uL Eos # (Auto) 0.2 (0.0-0.7) 10^3/uL Baso # (Auto) 0.0 (0.0-0.1) 10^3/uL Absolute Nucleated RBC 0.00 x10^3/uL Nucleated RBC % 0.0 /100WBC Sodium 137 (135-145) mmol/L Potassium 4.2 (3.5-4.5) mmol/L Chloride 105 (101-111) mmol/L Carbon Dioxide 28 (21-32) mmol/L Anion Gap 4.0 L (6-13) BUN 14 (6-20) mg/dL Creatinine 0.6 (0.6-1.3) mg/dL Estimated GFR (MDRD) 96 (>89) Glucose 101 (74-104) mg/dL Calcium 8.5 (8.5-10.3) mg/dL Assessment/Plan Problem List (1) Closed intertrochanteric fracture of left femur: 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 imaging shows left intertrochanteric femur fracture. repaired intramedullary melvin. EBL 50cc. Today is POD #2 Pain control with Tylenol, hydrocodone and Dilaudid as needed. having difficulty navigating APAP dosage limits. we do not have > 5/325 [place] in house. . DVT prophylaxis with SCDs I am using Lovenox 40mg daily, until dc then ASA 81MG BID with food. This is standard protocol for Dr Nash, and this patient takes ASA for CAD already. Patient does not want to go to SNF post op. she is open to the idea of home health. Home health order written. She worked with PT today. needs one additional session, may need lift assist into the house on arrival home. (2) Osteoporosis: Impression: not on bisphosphonate treatment. She has history of elbow fracture on the left in Mar 2023. She regularly engages in weight bearing exercise. I have started her on Ca and Vit D post operatively for fracture healing. (3) Hx of heart artery stent: Impression: July 2019, stenting at [facility]. She sees Dr Orlando Steven in [place], just saw him in , and all was well. She took Plavix for 2 years post stenting and is now off of that. She takes asprin 81 mg daily. She has not had any anginal symptoms despite her active lifestyle. (4) Hypertension: Impression: home meds have been restarted. (5) Hyperlipidemia: Impression: OK to resume statin on return home. (6) Hypothyroidism: Impression: resuming home meds in the AM. This patient's diagnosis and treatment plan was discussed this AM with attending physician as a part of multi disciplinary rounding meeting. I have spent 45 minutes in the care of this patient today. This includes time [id number], review and ordering of diagnostic imaging and laboratory studies . Monitoring the patient's signs symptoms, evaluation of medication effectiveness and patient's response to treatment. 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
--- NOTE | 2024-12-21 13:24 | PT Plan of Care ---
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 MEDICAL/SURGICAL HISTORY Surgical History History of open reduction and internal fixation (ORIF) procedure LEFT ELBOW H/O: hysterectomy (2015) H/O cystocele repair (2015) Bilateral acoustic neuromas (1963) Hx of tubal ligation (1983) History of tonsillectomy and adenoidectomy (1963) Hx of rotator cuff surgery (2008) Hx of cataract surgery (2004) H/O bilateral breast reduction surgery (2001) Hx of appendectomy (1981) BALANCE/FUNCTIONAL RESULTS Sitting Balance: Good Standing Balance: Fair ASSESSMENT Assessment: The pt is an 79 y/o F who arrived to the ED on 12/18/24 after a GLF while playing pickle ball, she was hospitalized with L intertrochanteric fx and is now s/p L hip nailing performed on 12/19/[address] Nash. Please see chart for complete medical hx. The pt was received resting comfortably supine in bed and presented today with decreased L LE strength, decreased activity tolerance, and increased anxiety during mobility all of which limited her tolerance during functional mobility. At this time recommend continued skilled PT intervention while in the acute setting and DC home with all services for further rehab once pt medically stable as she is functioning far below her baseline level of Ind. This plan was discussed with the pt and she was in agreement with this. At the end of the session the pt was sitting up in a chair with call light in reach, chair alarm in place and on, and all needs met. RN and PA updated on pt's status and DC rec. PATIENT/FAMILY GOALS Patient/Family Goals: To be able to move my L leg so that I can go home instead of rehab GOALS Improve supine to sit to:: Standby Assist Improve sit to stand to:: Standby Assist Improve pivot transfer ability to:: Standby Assist Improve sit to supine to:: Standby Assist Improve gait ability to:: CGA Advance Assistive Device to:: Front Wheeled Walker Increase distance walked to (in feet):: 25 Other Balance Goal:: with FWW PLAN Frequency: 1-2x/day Duration: Until discharge DISCHARGE RECOMMENDATIONS Discharge Location: Previous Living Situation Support/Services Needed: Home Health P.T. Other Discharge Equipment: kimi FWW; BSC; grab bars Transport Needs at Discharge: Personal vehicle
[2024-12-21] MEDS: HYDROcod/ACETAM 5/325 MG TABLET PO PRN (16:42)
[2024-12-22 06:02] LABS: HCT - HEMATOCRIT 28.3 % (37.0-47.0); HGB - HEMOGLOBIN 9.3 g/dL (12.0-16.0); MEAN PLATELET VOLUME 9.6 fL (7.9-10.8); NRBC ABSOLUTE COUNT (AUTO) 0.00 x10^3/uL; NUCLEATED RED BLOOD CELLS AUTO 0.0 /100WBC; PLT - PLATELET COUNT 243 10^3/uL (130-450); RED CELL DISTRIBUTION WIDTH 12.9 % (12.0-15.0)
[2024-12-22 06:19] LABS: BUN - BLOOD UREA NITROGEN 12.0 mg/dL (6-20); CARBON DIOXIDE - CO2 30.0 mmol/L (21-32); CREATININE 0.6 mg/dL (0.6-1.3); GFR - MDRD 96.0 (>89)
[2024-12-22 08:20] VITALS: O2SAT 96
--- NOTE | 2024-12-22 13:14 | Discharge Summary ---
Discharge Summary Admit Date: 12/18/24 Discharge Date: 12/22/24 Discharging Provider: Graciela Arshad PA-C Primary Care Provider: SUZAN Chappell Code Status: Do Not Attempt Resuscitation DIAGNOSES Discharge Diagnoses with Status of Each Condition: Closed intratrochanteric left femur fracture, status postrepair Osteoporosis Coronary artery disease status post stent placement Hypertension Hyperlipidemia Hypothyroidism HPI History of Present Illness: 79F w PMH CAD, HTN, hypothyroid and osteoporosis presents to the ED [place] [employer] [place]. She was moving quickly and this was a mechanical fall. She has no pain at rest, but unable to ambulate or move her left leg at all due to pain. Was in her usual states of health prior to this accident. Healthy and active. [place] partner [place] [address] [place] [facility]. Plays [employer] 2x weekly, [employer], [employer]. 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 partner Princess and daughter Cece are her surrogate medical decsion makers if she should need it. She does have a POLST at home, which she cannot recall what it states. She is independent in all ADLs. does not want to go to SNF for rehab post op. has 3 stairs to enter home, and a first floor bedroom and bathroom. HOSPITAL COURSE Hospital Course: mechanical fall resulting in left intertrochanteric femur fracture repaired on HD #2. post operatively she did well but required 2 days of PT in order to gain enough mobility to return home, which was her stated goal. Pain controlled w [place] DVT prophylaxis post op with ASA 81mg BID. ortho clinic followup in 2 weeks for wound check and XRays. Calcium and Vit D recommended for fracture healing. Would consider biphosphonate treatment in this patient who has now had 2 fractures (elbow fracture in Mar 2023). All home meds resumed on dc with the exception of aspirin that was changed from once daily to twice daily ALLERGIES Allergies Allergy/AdvReac Type Severity Reaction Status Date / Time erythromycin base Allergy Unknown Verified 08/27/24 14:18 telithromycin (From Ketek) Allergy Rash Verified 08/27/24 14:18 morphine AdvReac Intermediate Unknown Verified 08/27/24 14:18 MEDICATIONS Ambulatory Orders Medication Instructions Recorded Confirmed metoprolol succinate 25 mg 50 mg PO QPM 12/14/1912/19 tablet,extended release 24 hr (Toprol XL) nitroglycerin 0.4 mg sublingual 0.4 mg sublingual Q5MI N PRN Angina 12/15/19 12/18/24 tablet #100 tabs cimetidine 200 mg tablet (Tagamet 200 mg PO DAILY 02/0612/19/24 HB) liothyronine 5 mcg tablet 10 mcg PO DAILY 02/27/24 lisinopril 10 mg tablet 10 mg PO QPM 02/27/24 pravastatin 20 mg tablet 20 mg PO QPM 02/27/24 celecoxib 100 mg capsule 100 mg PO .2 x week PRN pain 08/27/24 12/18/24 levothyroxine 50 mcg tablet 50 mcg PO DAILY 12/19/24 1 02/19/24 liothyronine 5 mcg tablet (Cytomel) 5 mcg PO QPM 12/1912/19/24 aspirin 81 mg tablet,delayed 81 mg PO BID #60 tabs release (Ecotrin Low Strength) calcium carbonate 500 mg (2.5 x 200 mg calcium (500 12/22/24 mg)) PO BID #90 tabs cholecalciferol (vitamin D3) 10 800 unit PO DAILY #30 tabs 12/22/24 mcg (400 unit) tablet gabapentin 100 mg capsule 100 mg PO TID #90 caps 12/22 hydrocodone 10 mg-acetaminophen 1 tab PO Q4HR PRN pain #30 tabs 12/22/24 325 mg tablet PHYSICAL EXAM AT DISCHARGE Vital Signs: Vital Signs x48h Temp Resp BP Pulse Ox 12/22/24 14:10 36.5 C 20 121/58 L 96 Physical Exam Other/Comments: General Appearance: positive No acute distress and Alert Eyes Bilateral: positive Normal inspection ENT: positive ENT inspection nml Neck: positive Nml inspection Respiratory: positive No respiratory distress Cardiovascular: positive Regular rate & rhythm Abdomen: positive Non-tender and No distention Skin: positive Color nml Extremities: positive Non-tender, No pedal edema and Other (dresssing taken down and replaced with water tight silver dressing) Neurologic/Psychiatric: positive Oriented x3 LABS 12/22/24 05:44 12/22/24 05:44 QUALITY (Female Hip Fx Only) Was patient sent home on osteoporosis medication?: Yes FOLLOW UP Follow Up: PCP 7-10 days Ortho clinic for standard 2 week post op check TIME SPENT Time Spent in Discharge (Minutes): 45 Discharge Plan Discharge Patient Disposition: 01 Home, Self Care Condition: Good Prescriptions: New calcium carbonate 200 mg calcium (500 mg) Tablet,Chewable 500 mg PO BID Qty: 90 0RF cholecalciferol (vitamin D3) 10 mcg (400 unit) Tablet 800 unit PO DAILY Qty: 30 2RF gabapentin 100 mg Capsule 100 mg PO TID Qty: 90 0RF hydrocodone-acetaminophen 10-325 mg tablet 1 tab PO Q4HR PRN (Reason: pain) Qty: 30 0RF aspirin [Ecotrin Low Strength] 81 mg tablet,delayed release (DR/EC) 81 mg PO BID Qty: 60 1RF Continued metoprolol succinate [Toprol XL] 25 MG tablet extended release 24 hr 50 mg PO QPM nitroglycerin 0.4 MG tablet, sublingual 0.4 mg sublingual Q5MIN PRN (Reason: Angina) Qty: 100 0RF Rx Instructions: may repeat q5 min x3 (max) prn angina liothyronine 5 mcg tablet 10 mcg PO DAILY levothyroxine 50 mcg tablet 50 mcg PO DAILY Patient Comments: TAKE 1 TABLET BY MOUTH ONCE DAILY liothyronine [Cytomel] 5 mcg tablet 5 mcg PO QPM pravastatin 20 mg tablet 20 mg PO QPM Patient Comments: TAKE 1 TABLET BY MOUTH EVERY NIGHT AT BEDTIME cimetidine [Tagamet HB] 200 mg tablet 200 mg PO DAILY lisinopril 10 mg tablet 10 mg PO QPM Patient Comments: take 1 tablet by mouth once daily celecoxib 100 mg capsule 100 mg PO .2 x week PRN (Reason: pain) Discontinued aspirin 81 MG tablet,delayed release (DR/EC) 81 mg PO QPM Health Concerns: Activity and Mobility * Begin weight-bearing as tolerated unless otherwise instructed. Early mobilization is important for recovery and to reduce complications * Use assistive devices (walker, cane) as needed for safety. * Attend all scheduled physical and occupational therapy sessions to maximize function and independence. Home health referral has been written. Medications * Aspirin 81 mg by mouth twice daily for 6 weeksfor prevention of blood clots (deep vein thrombosis). Take with food to reduce stomach upset. This regimen is supported by recent evidence for VTE prophylaxis after orthopedic trauma. * * Calcium and vitamin D supplementation: Take as directed to support bone healing and reduce the risk of future fractures. Typical regimens include calcium 1200 mg daily (from diet and supplements) and vitamin D3 [id number] IU daily. Adjust based on your providers recommendations and lab results.[1- 2][5][8] * Take all other prescribed medications as directed. Wound Care * Keep the surgical incision clean and dry.Leave this dressing in place for up to one week. If it started to peel off and become wet or dirty, remove it and leave incision open to air. It is OK for your incision to get wet, just no hot tubs, pools, tub baths. Showering is good and you should shower to keep bacteria counts down on your skin. * Watch for signs of infection: redness, swelling, warmth, drainage, or fever. Prevention of Complications * Move your legs frequently and avoid prolonged immobility to reduce the risk of blood clots. * Use compression stockings or devices if prescribed. * Monitor for symptoms of blood clots: new leg swelling, pain, redness, or shortness of breath. Seek immediate medical attention if these occur. Follow-Up * Schedule follow-up appointments with your orthopedic surgeon and primary care provider. * Discuss long-term osteoporosis management, including possible initiation of bone-protective medications. You have now had 2 fractures. I do not think you need any testing, because I am certain that you have osteoporosis. Diet and Nutrition * Eat a balanced diet rich in protein, fruits, vegetables, and dairy to support healing. * Maintain adequate hydration. When to Seek Medical Attention * Signs of infection at the surgical site. * Symptoms of blood clots (as above). * Chest pain, difficulty breathing, or sudden weakness/numbness. * Uncontrolled pain or inability to move the leg. Additional Instructions * Avoid smoking and limit alcohol intake, as these can impair bone healing. * Review all medications with your provider to avoid interactions, especially with aspirin. If you have any questions or concerns, contact your healthcare team promptly. Print Language: Georgian Patient Instructions: Surg Dc Stand Alone Forms: PCP List Follow-up Care: Marta Mars NP [Primary Care Provider, Family Practice] Rene Nash DO [Provider Admit Priv/Credential, Orthopedics] Referral Note: 2 weeks for X rays and staple removal Vitals documented within 30 minutes of discharge?: Yes (Yes.)
[2024-12-22 14:42] VITALS: BP 121/58; TEMP 97.7
== END 2024-12-22 14:40 | disposition home or self-care (01) | DRG 981 ==
LOC: ED 15:14 → MS2 16:11
PROVIDERS: ADMIT Physician Assistant Medical; ATTEND Physician Assistant Medical
PROC: HIPNAIL (2024-12-19 12:30)